=== PATIENT | female | born 1950 | race Caucasian/White ===

== ENCOUNTER 2016-04-29 19:54 | Observation (INO) | payer MEDICARE, MEDICAID ==
[2016-04-29] MEDS ORDERED: ONDANSETRON HCL/PF 2 MG/ML VIAL IV ONE (20:18)
[2016-04-29] MEDS ORDERED: ONDANSETRON HCL/PF 2 MG/ML VIAL ONE (20:18)
[2016-04-29] MEDS ORDERED: NITROGLYCERIN 0.4 MG/TAB BTL SL ONE (20:20)
[2016-04-29] MEDS ORDERED: ASPIRIN 81 MG TAB.CHEW ONE (20:35)
[2016-04-29] MEDS ORDERED: ASPIRIN 81 MG TAB.CHEW PO ONE (20:36)
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
[2016-04-29 20:48] LABS: Prothrombin Time (Patient) 11.7 Seconds (9.4-11.4)
[2016-04-29 20:49] LABS: INR 1.13 INR (0.90-1.10); Partial Thrombolplastin Time 33.8 Seconds (24-32)
[2016-04-29 20:54] LABS: ALT 24 U/L (19-67); AST 26 U/L (0-48); Albumin * 3.6 gm/dl (3.4-5.0); Alkaline Phosphatase * 124 U/L (50-170); Anion Gap 14.1 mmol/L (6.8-13.8); BUN/Creatinine Ratio 13.6 (9.0-21.6); Bilirubin, Total 0.3 mg/dL (0.0-1.1); Blood Urea Nitrogen 14 mg/dL (3-23); Ca. Corrected For Albumin 8.9 mg/dL (8.4-10.2); Calcium * 8.9 mg/dL (7.9-10.9); Carbon Dioxide 29.4 mmol/L (24-32.6); Chloride 98 mmol/L (97-106); Glucose * 86 mg/dL (70-110); Potassium 3.5 mmol/L (3.4-4.6); Sodium 138 mmol/L (132-142); Troponin I Less than 0.017 ng/ml (0.00-0.10)
[2016-04-29 20:55] LABS: Hematocrit 33.5 % (37.0-47.0); Hemoglobin 10.6 gm/dL (12.5-16.0); Mean Cell Volume 94.6 fl (78-100); Mean Corpuscular Hemoglobin 29.9 pg (27-31); Mean Corpuscular Hgb Conc 31.6 g/dl (32-36); Mean Platelet Volume 9.7 fl (6.0-9.5); Neutrophil # 7.7 K/mm3 (1.3-6.0); Neutrophil % 65.2 % (42-75.0); Platelet Count 320 K/mm3 (150-450); Red Blood Count 3.54 M/mm3 (4.2-5.4); Red Cell Distribution Width 15.3 % (11.5-14.0); White Blood Count 11.8 K/mm3 (4.0-10.5)
--- OUTSIDE RECORDS SUMMARY | 2016-04-29 21:48 | XMS REPORT | Continuity of Care Document ---
:1950 Author Organization [facility] ([facility] Address [address] [place] [address] Phone [phone] Care Team Providers Name Role Phone Oliver Rg Primary Care Provider [phone] Source Comments This disclosure is being made pursuant to the Care Everywhere program, applicable federal and state laws, and may not contain all informaitonavailable regarding this patient.[facility] ([facility] Active Allergies and Adverse Reactions Allergen Noted Date Severity Reactions Comments Antihistamine-1 09/13/2013 OTHER "Makes me really really hyper" Penicillins 09/13/2013 Urticaria (Hives) Current Medications Prescription Sig. Disp. Refills Start Date End Date Status ALPRAZolam 1 mg tablet Take 0.5 mg by Active mouth 2 times daily as needed. atorvastatin 20 mg Take 20 mg by mouth Active tablet daily. cyclobenzaprine 10 mg Take 2 tablets by Active tablet mouth every night at bedtime. isosorbide mononitrate Take 20 mg by mouth Active 20 mg tablet 2 times daily. metFORMIN 500 mg XR Take 1 tablet by Active tablet mouth daily with the evening meal. mirtazapine 15 mg tablet Take 15 mg by mouth Active at bedtime. nitroglycerin 0.[address] 1 tablet Active tablet under the tongue at the first sign of attack. May repeat every 5 minutes (up to 3 tablets). ranitidine 150 mg tablet Take 150 mg by Active mouth 2 times daily. HYDROcodone-acetaminophe Take 1 Tab by mouth 30 Tab 0 09/24/2013 Active n 5-325 mg per tablet every 6 hours as needed. Indications: PAIN metoPROLol tartrate 50 Take 1 Tab by mouth 60 Tab 0 09/24/2013 Active mg tablet every 12 hours. Indications: tachycardia QUEtiapine 400 mg tablet Take 0.5 Tabs by 30 Tab 0 09/24/2013 Active mouth 2 times daily. Indications: DEPRESSION TREATMENT ADJUNCT aspirin 81 mg EC tablet Take 1 Tab by mouth 30 Tab 0 09/24/2013 Active daily. Indications: MYOCARDIAL INFARCTION PREVENTION lidocaine 5 % ointment apply topically as 35 g 11 09/24/2013 Active needed. Indications: pain Active Problems Patient Care Coordination Note GOALS OF CARE AND TREATMENT PREFERENCES Diagnosis: Lower GI bleeding, hypotension Prognosis: Fair Goal(s) of Care: determine what is wrong Is the patient an inpatient? Yes. How did the team arrive at the current code status? Discussion with capable patient Most important goal of care: Stopping bleeding Additional remarks: None Patient able to make own decisions?: Yes Problem Noted Date Colitis 09/20/2013 Paralytic ileus 09/18/2013 Hypokalemia 09/16/2013 SVT (supraventricular tachycardia) 09/16/2013 Abdominal pain 09/14/2013 GI bleed 09/13/2013 Anemia due to acute blood loss 09/13/2013 DM type 2 (diabetes mellitus, type 2) 09/13/2013 History of lung cancer 09/13/2013 CAD (coronary artery disease) 09/13/2013 Essential hypertension 09/13/2013 Hypoalbuminemia 09/13/2013 Resolved Problems Problem Noted Date Resolved Date Sepsis(995.91) 09/18/2013 09/19/2013 Severe sepsis(995.92) 09/18/2013 09/19/2013 JACKIE (acute kidney injury) 09/14/2013 09/16/2013 Shock 09/13/2013 09/16/2013 Septic shock(785.52) 09/13/2013 09/16/2013 Hemorrhagic shock 09/13/2013 09/16/2013 Immunizations Name Dates Previously Given Next Due Influenza, unspecified 11/13/2012 Meningococcal, unspecified 04/13/2013 Pneumococcal, unspecified 06/22/2013 Social History Tobacco Use Types Packs/Day Years Used Date Former Smoker Alcohol Use Drinks/Week oz/Week Comments No Last Filed Vital Signs Vital Sign Reading Time Taken Blood Pressure 129/69 09/24/2013 8:20 AM CDT Pulse 112 09/24/2013 8:20 AM CDT Temperature 36.9 C (98.4 F) 09/24/2013 8:20 AM CDT Respiratory Rate 18 09/24/2013 8:20 AM CDT Height 1.562 m (5' 1.5") 09/20/2013 10:57 PM CDT Weight 65.8 kg (145 lb 1 oz) 09/20/2013 10:57 PM CDT Body Mass Index 26.97 09/20/2013 10:57 PM CDT Oxygen Saturation 93% 09/24/2013 8:20 AM CDT Plan of Care Health Maintenance Due Date Last Done Comments HCV Screening 1950 Hepatitis B Vaccine (1 of 3 - Primary Series) 1950 Tdap Vaccine 1960 DIABETIC: Cholesterol 11/19/1967 Diabetic: Hdl 11/19/1967 DIABETIC: Hemoglobin A1C 11/19/1967 Diabetic: Ldl 11/19/1967 DIABETIC: Microalbumin 11/19/1967 DIABETIC: Triglycerides 11/19/1967 Td Vaccine 11/19/1967 Mammogram 06/11/1997 06/11/1996 Colonoscopy 1999 Zoster Vaccine 2009 DIABETIC: Foot Exam 09/13/2013 DIABETIC: Retinal Eye Exam 09/13/2013 Osteoporosis Screening (DXA Bone Density) 2014 Pneumococcal Vaccine (1 of 2 - PCV13) 2014 Influenza Vaccine: Seasonal (#1) 09/14/2015 11/13/2012 Results from Last 3 Months Not on file
[2016-04-29] MEDS ORDERED: ALPRAZolam 0.5 MG TABLET PO PRN (23:19)
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
[2016-04-30] MEDS ORDERED: MIRTAZAPINE 15 MG TABLET PO SCH (00:15)
[2016-04-30] MEDS: ISOSORBIDE MONONITRATE 10 MG TABLET PO SCH ×2 (00:16→10:06)
[2016-04-30] MEDS: QUEtiapine FUMARATE 100 MG TABLET PO SCH ×2 (00:16→10:07)
[2016-04-30] MEDS: MORPHINE SULFATE 15 MG TABLET.SA PO SCH ×2 (00:17→10:06)
[2016-04-30 00:53] LABS: Urine Bilirubin Negative (NEGATIVE); Urine Blood Negative /ul (NEGATIVE); Urine Ketone Negative (NEGATIVE); Urine Nitrite Negative (NEGATIVE); Urine Protein Negative (NEGATIVE); Urine Specific Gravity 1.015 SP.GR. (1.005-1.010); Urine Urobilinogen Normal (NORMAL); Urine pH 6.5 pH (5.0-7.0)
[2016-04-30 06:31] LABS: Urine Appearance Clear; Urine Color Yellow
[2016-04-30 06:32] LABS: Urine Bacteria None Seen; Urine RBC None Seen /hpf (0-5); Urine WBC None Seen /hpf (0-5)
[2016-04-30] MEDS ORDERED: GLIMEPIRIDE 2 MG TABLET PO SCH (07:00)
[2016-04-30] MEDS ORDERED: PANTOPRAZOLE SODIUM 40 MG TABLET.EC PO SCH (07:00)
[2016-04-30 08:20] LABS: Hematocrit 31.5 % (37.0-47.0); Mean Cell Volume 93.2 fl (78-100); Mean Corpuscular Hemoglobin 29.6 pg (27-31); Mean Corpuscular Hgb Conc 31.7 g/dl (32-36); Mean Platelet Volume 9.4 fl (6.0-9.5); Neutrophil # 3.5 K/mm3 (1.3-6.0); Neutrophil % 54.9 % (42-75.0); Platelet Count 301 K/mm3 (150-450); Red Blood Count 3.38 M/mm3 (4.2-5.4); Red Cell Distribution Width 15.5 % (11.5-14.0); White Blood Count 6.4 K/mm3 (4.0-10.5)
[2016-04-30 08:43] LABS: TSH * 4.862 uIU/mL (0.358-3.74); Troponin I Less than 0.017 ng/ml (0.00-0.10)
[2016-04-30] MEDS ORDERED: PROCHLORPERAZINE MALEATE 10 MG TABLET PO SCH (09:00)
[2016-04-30] MEDS ORDERED: VITAMIN B COMP W-C 1 TAB TABLET PO SCH (09:00)
[2016-04-30] MEDS ORDERED: FAMOTIDINE 20 MG TABLET PO SCH (09:00)
[2016-04-30] MEDS ORDERED: ROSUVASTATIN CALCIUM 10 MG TABLET PO SCH (09:00)
[2016-04-30] MEDS ORDERED: RIVAROXABAN PO SCH (09:00)
[2016-04-30] MEDS ORDERED: VENLAFAXINE HCL 100 MG PO SCH (09:00)
[2016-04-30] MEDS ORDERED: CALCIUM CARBONATE/VITAMIN D3 1 TAB TABLET PO SCH (09:00)
[2016-04-30 10:31] VITALS: BP 113/63
--- NOTE | 2016-04-30 11:39 | DS ---
(1) Chest pain Problem: Acute Description of Stay: ADMISSION DATE: 04.29.2016 DISCHARGE DATE: 04.30.2016 ADMISSION HPI: 65 years old female adm to the hospital from ER with reports of substernal chest pain radiating to left arm. Pt stated she was at the movies when she began having chest pain, she was assisted to the bathroom by her daughter and drove to [facility]. Associated s/s nausea, vomiting, palpitation, diaphoresis and pt described a tight squeezing feeling in the chest. Pain was resolved in ER with use of Nitro tab x1 and aspirin 324mg x1. she denies headache, syncope and blurred vision. In ER EKG- Sinus tachy, no St changes. CXR: post treatment changes within left hemithorax, left upper lobe lobectomy. Initial troponin negative will repeat in 6hrs. WBC 11.3 slightly elevated she was recently treated for pneumonia with IV antbx (Cefepime) x10 days at the [facility], last dose was 04/23/16. she Currently uses Macrobid for recurrent UTI. PMH significant for lung cancer with mets to liver and spine, diabetes, [place] 20yrs ago, PE on xarelto, COPD, CKD III, recurrent UTI, anxiety, depression, CAD stents x3 and GERD. Will adm OBV and repeat serial troponin. Plan of care discussed with pt and they verbalized understanding and agree. HOSPITAL COURSE: Patient admitted for chest pain. Cardiac enzymes trended and unremarkable. Chest pain resolved prior to discharge. Patient instructed to follow-up with PCP within 1 week and to discuss possible outpatient cardiac stress test. Procedures Performed: none Discharge Disposition: Home self care Disposition: Home self-care Condition: Stable Discharge Activity: Activity as tolerated Discharge Diet: Resume usual diet Referrals: Oliver Rg DO [Primary Care Provider] - Additional Patient Instructions (free text): Follow-up with PCP, Dr. Rg, within 1 week of discharge. 05/09 at 2:00 Prescriptions (Any new or edited meds): Nitroglycerin 0.4 mg SL Q5M PRN #25 tab.subl PRN Reason: Chest Pain Ondansetron [Zofran Odt] 4 mg PO Q6H PRN #20 tab PRN Reason: Nausea And Vomiting Complete Home Medications List: Complete Home Medication List: Atorvastatin Calcium 20 mg PO DAILY 05/30/12 Mirtazapine [Remeron] 15 mg PO HS 05/30/12 Quetiapine Fumarate [Seroquel] 400 mg PO BID 05/30/12 Ranitidine HCl 150 mg PO DAILY 05/30/12 Venlafaxine HCl 100 mg PO BID 05/30/12 B Complex with Vitamin C [B-Complex with C] 1 tab PO BID 10/12/14 Calcium Carbonate/Vitamin D3 [Calcium 600 + Vit D 400 Softgl] 1 each PO BID Glimepiride [Amaryl] 1 mg PO DAILY 10/12/14 Pantoprazole Sodium 40 mg PO DAILY 10/12/14 Isosorbide Mononitrate 20 mg PO BID 12/20/14 Morphine Sulfate [Ms Contin] 15 mg PO BID 12/20/14 Prochlorperazine Maleate [Compazine] 10 mg PO BID 12/20/14 ALPRAZolam [Xanax] 0.5 mg PO QID PRN 04/29/16 Hydrocodone Bitartrate [Zohydro ER] 7.5 mg PO Q6H PRN 04/29/16 Nitrofurantoin Macrocrystal [Nitrofurantoin] 100 mg PO HS 04/29/16 Nivolumab [Opdivo] 0 mg IV TU 04/29/16 Rivaroxaban [Xarelto] 20 mg PO DAILY 04/29/16 Nitroglycerin 0.4 mg SL Q5M PRN #25 tab.subl 04/30/16 Ondansetron [Zofran Odt] 4 mg PO Q6H PRN #20 tab 04/30/16
[2016-04-30] MEDS ORDERED: NON-FORMULARY 1 DOSE DOSE PO SCH (14:00)
== END 2016-04-30 12:45 | disposition home or self-care (01) ==
LOC: ER 19:54 → MS 21:36
PROVIDERS: ADMIT Nurse Practitioner; ATTEND Internal Medicine
DX: R07.9 Chest pain, unspecified (principal); C34.12 Malignant neoplasm of upper lobe, left bronchus or lung; E03.9 Hypothyroidism, unspecified; E11.9 Type 2 diabetes mellitus without complications; Z79.84 Long term (current) use of oral hypoglycemic drugs; I27.82 Chronic pulmonary embolism; Z79.01 Long term (current) use of anticoagulants; K21.9 Gastro-esophageal reflux disease without esophagitis; F41.8 Other specified anxiety disorders; I25.10 Atherosclerotic heart disease of native coronary artery without angina pectoris; Z87.891 Personal history of nicotine dependence
CPT/HCPCS: 36415; 71010; 80053; 81001; 84443; 84484; 85025; 85610; 85730; 93005; 96374; 99284; G0378

== ENCOUNTER 2016-09-30 13:11 | Emergency (ER) | payer MEDICARE, MEDICAID ==
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
[2016-09-30] MEDS ORDERED: IBUPROFEN 600 MG TABLET PO ONE (14:13)
[2016-09-30] MEDS ORDERED: IBUPROFEN 600 MG TABLET ONE (14:13)
[2016-09-30 14:23] VITALS: BP 109/58
== END 2016-09-30 14:24 | disposition home or self-care (01) ==
LOC: ER 13:11
DX: S46.911A Strain of unspecified muscle, fascia and tendon at shoulder and upper arm level, right arm, initial encounter (principal); G89.29 Other chronic pain; E11.9 Type 2 diabetes mellitus without complications; K21.9 Gastro-esophageal reflux disease without esophagitis; Z85.118 Personal history of other malignant neoplasm of bronchus and lung

== ENCOUNTER 2016-10-26 08:35 | Emergency (ER) | payer MEDICARE, MEDICAID ==
[2016-10-26 08:53] VITALS: BP 121/56
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
[2016-10-26] MEDS ORDERED: MORPHINE SULFATE 2 MG/ML DISP.SYRIN IV ONE (09:33)
[2016-10-26] MEDS ORDERED: ONDANSETRON HCL/PF 2 MG/ML VIAL IV ONE (09:33)
[2016-10-26] MEDS ORDERED: MORPHINE SULFATE 2 MG/ML DISP.SYRIN ONE (09:53)
[2016-10-26] MEDS ORDERED: ONDANSETRON HCL/PF 2 MG/ML VIAL ONE (09:53)
[2016-10-26 09:56] LABS: Hematocrit 26.4 % (37.0-47.0); Hemoglobin 8.3 gm/dL (12.5-16.0); Mean Cell Volume 89.2 fl (78-100); Mean Corpuscular Hgb Conc 31.4 g/dl (32-36); Mean Platelet Volume 9.2 fl (6.0-9.5); Platelet Count 521 K/mm3 (150-450); Red Blood Count 2.96 M/mm3 (4.2-5.4); Red Cell Distribution Width 19.9 % (11.5-14.0); White Blood Count 13.8 K/mm3 (4.0-10.5)
[2016-10-26 09:59] LABS: Total Cells Counted 100
[2016-10-26 10:12] LABS: Albumin * 2.9 gm/dl (3.4-5.0); Anion Gap 12.7 mmol/L (6.8-13.8); BUN/Creatinine Ratio 17.1 (9.0-21.6); Bilirubin, Total 0.2 mg/dL (0.0-1.1); Ca. Corrected For Albumin 9.3 mg/dL (8.4-10.2); Calcium * 8.7 mg/dL (7.9-10.9); Carbon Dioxide 28.2 mmol/L (24-32.6); Potassium 3.9 mmol/L (3.4-4.6)
[2016-10-26 10:27] LABS: Atypical (Reactive) Lymph 1 % (0-2); Eosinophil 2 % (0-3); Immature Granulocyte 2 (0-1); Lymphocyte 10 % (20-51); Monocyte 11 % (0-9); Neutrophil 74 % (42-75); Neutrophil # 10.2 K/mm3 (1.3-6.0)
[2016-10-26 10:28] LABS: Hypochromia 2+; Macrocytosis 2+; Platelet Estimate Increased (NORMAL); Target Cells 3+
[2016-10-26 10:31] LABS: Urine Bilirubin Negative (NEGATIVE); Urine Blood Negative /ul (NEGATIVE); Urine Ketone Negative (NEGATIVE); Urine Protein Negative (NEGATIVE); Urine Urobilinogen Normal (NORMAL); Urine pH 6.5 pH (5.0-7.0)
[2016-10-26 10:43] LABS: Urine Appearance Clear; Urine Bacteria 2+; Urine Color Yellow; Urine Nitrite Positive (NEGATIVE); Urine RBC None Seen /hpf (0-5)
[2016-10-26] MEDS ORDERED: LEVOFLOXACIN/D5W 500 MG/100 ML BAG IV SCH (11:00)
[2016-10-26] MEDS ORDERED: HYDROmorphone HCL 1 MG/ML DISP.SYRIN IV ONE (12:08)
[2016-10-26] MEDS ORDERED: HYDROmorphone HCL 1 MG/ML DISP.SYRIN ONE (12:10)
== END 2016-10-26 13:27 | disposition home or self-care (01) ==
LOC: ER 08:35
DX: N12 Tubulo-interstitial nephritis, not specified as acute or chronic (principal); Z87.891 Personal history of nicotine dependence; Z85.118 Personal history of other malignant neoplasm of bronchus and lung; Z92.21 Personal history of antineoplastic chemotherapy; Z87.440 Personal history of urinary (tract) infections; I50.9 Heart failure, unspecified; Z95.5 Presence of coronary angioplasty implant and graft; E11.9 Type 2 diabetes mellitus without complications; K21.9 Gastro-esophageal reflux disease without esophagitis; Z79.01 Long term (current) use of anticoagulants
CPT/HCPCS: 36415; 71275; 74020; 80053; 81001; 85025; 85379; 87077; 87086; 87186; 96365; 96375; 99284; J2405

== ENCOUNTER 2016-11-20 21:01 | Emergency (ER) | payer MEDICARE, MEDICAID ==
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
[2016-11-20 22:30] LABS: Hematocrit 28.4 % (37.0-47.0); Hemoglobin 9.3 gm/dL (12.5-16.0); Mean Cell Volume 85.5 fl (78-100); Mean Corpuscular Hgb Conc 32.7 g/dl (32-36); Mean Platelet Volume 9.9 fl (6.0-9.5); Neutrophil # 10.1 K/mm3 (1.3-6.0); Neutrophil % 77.7 % (42-75.0); Platelet Count 290 K/mm3 (150-450); Red Blood Count 3.32 M/mm3 (4.2-5.4); Red Cell Distribution Width 20.4 % (11.5-14.0)
[2016-11-20 22:34] LABS: Urine Bilirubin Negative (NEGATIVE); Urine Blood Negative /ul (NEGATIVE); Urine Ketone Negative (NEGATIVE); Urine Protein Negative (NEGATIVE); Urine Urobilinogen Normal (NORMAL); Urine pH 6.5 pH (5.0-7.0)
[2016-11-20 22:44] LABS: Urine Appearance Clear; Urine Bacteria 2+; Urine Color Yellow; Urine Nitrite Positive (NEGATIVE); Urine RBC None Seen /hpf (0-5); Urine WBC 0-5 /hpf (0-5)
[2016-11-20 23:01] LABS: Albumin * 2.5 gm/dl (3.4-5.0); Anion Gap 12.2 mmol/L (6.8-13.8); BUN/Creatinine Ratio 17.7 (9.0-21.6); Bilirubin, Total 0.4 mg/dL (0.0-1.1); Ca. Corrected For Albumin 9.1 mg/dL (8.4-10.2); Calcium * 8.2 mg/dL (7.9-10.9); Carbon Dioxide 27.1 mmol/L (24-32.6); Potassium 3.3 mmol/L (3.4-4.6); Total Protein 7.9 gm/dL (6.2-8.2)
[2016-11-20] MEDS ORDERED: POTASSIUM CHLORIDE 20 MEQ TABLET.SA PO ONE (23:48)
[2016-11-20] MEDS ORDERED: POTASSIUM CHLORIDE 20 MEQ TABLET.SA ONE (23:50)
[2016-11-21 00:12] VITALS: BP 120/76
== END 2016-11-20 23:58 | disposition home or self-care (01) ==
LOC: ER 21:01
PROC: 0T9B7ZZ Drainage of Bladder, Via Natural or Artificial Opening (ICD-10-PCS; principal; 2016-11-20)
DX: E16.0 Drug-induced hypoglycemia without coma (principal); T38.3X1A Poisoning by insulin and oral hypoglycemic [antidiabetic] drugs, accidental (unintentional), initial encounter; E11.9 Type 2 diabetes mellitus without complications; Z85.118 Personal history of other malignant neoplasm of bronchus and lung; Z92.21 Personal history of antineoplastic chemotherapy; Z87.440 Personal history of urinary (tract) infections; Z95.5 Presence of coronary angioplasty implant and graft; I50.9 Heart failure, unspecified; Z87.891 Personal history of nicotine dependence; R53.1 Weakness

== ENCOUNTER 2016-12-03 13:40 | Emergency (ER) | payer MEDICARE, MEDICAID ==
[2016-12-03] MEDS ORDERED: DILTIAZEM HCL 5 MG/ML VIAL IV ONE ×2 (13:58→14:01)
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
[2016-12-03 14:34] LABS: Urine Appearance Clear; Urine Bilirubin Negative (NEGATIVE); Urine Blood Negative /ul (NEGATIVE); Urine Color Yellow; Urine Ketone 15 mg/dL (NEGATIVE); Urine Nitrite Negative (NEGATIVE); Urine Protein Negative (NEGATIVE); Urine Urobilinogen Normal (NORMAL)
[2016-12-03 14:35] LABS: Urine Bacteria None Seen; Urine RBC None Seen /hpf (0-5); Urine WBC None Seen /hpf (0-5)
[2016-12-03 14:41] LABS: Hematocrit 24.4 % (37.0-47.0); Mean Cell Volume 88.1 fl (78-100); Mean Corpuscular Hemoglobin 28.9 pg (27-31); Mean Corpuscular Hgb Conc 32.8 g/dl (32-36); Mean Platelet Volume 10.2 fl (6.0-9.5); Neutrophil # 10.5 K/mm3 (1.3-6.0); Neutrophil % 78.3 % (42-75.0); Platelet Count 321 K/mm3 (150-450); Red Blood Count 2.77 M/mm3 (4.2-5.4); Red Cell Distribution Width 21.7 % (11.5-14.0); White Blood Count 13.4 K/mm3 (4.0-10.5)
[2016-12-03 14:58] LABS: Albumin * 2.1 gm/dl (3.4-5.0); Anion Gap 12.5 mmol/L (6.8-13.8); BUN/Creatinine Ratio 6.9 (9.0-21.6); Bilirubin, Total 0.3 mg/dL (0.0-1.1); Ca. Corrected For Albumin 8.8 mg/dL (8.4-10.2); Calcium * 7.6 mg/dL (7.9-10.9); Carbon Dioxide 29.4 mmol/L (24-32.6); Potassium 2.9 mmol/L (3.4-4.6); Total Protein 7.2 gm/dL (6.2-8.2)
[2016-12-03 14:59] LABS: Troponin I 0.114 ng/ml (0.00-0.10)
[2016-12-03 15:54] VITALS: BP 122/76
== END 2016-12-03 16:15 | disposition short-term general hospital (02) ==
LOC: ER 13:40
DX: I21.4 Non-ST elevation (NSTEMI) myocardial infarction (principal); R41.0 Disorientation, unspecified; Z85.118 Personal history of other malignant neoplasm of bronchus and lung

== ENCOUNTER 2016-12-07 16:14 | Inpatient (IN) | payer MEDICARE, MEDICAID ==
[2016-12-07] MEDS ORDERED: NORMAL SALINE 1,000 ML IV ONE (17:09)
[2016-12-07 17:28] LABS: Hematocrit 28.5 % (37.0-47.0); Hemoglobin 9.3 gm/dL (12.5-16.0); Mean Cell Volume 89.3 fl (78-100); Mean Corpuscular Hemoglobin 29.2 pg (27-31); Mean Corpuscular Hgb Conc 32.6 g/dl (32-36); Mean Platelet Volume 9.9 fl (6.0-9.5); Neutrophil # 13.3 K/mm3 (1.3-6.0); Neutrophil % 75.7 % (42-75.0); Platelet Count 362 K/mm3 (150-450); Red Blood Count 3.19 M/mm3 (4.2-5.4); White Blood Count 17.6 K/mm3 (4.0-10.5)
[2016-12-07 17:51] LABS: Albumin * 2.3 gm/dl (3.4-5.0); Anion Gap 10.4 mmol/L (6.8-13.8); BUN/Creatinine Ratio 11.9 (9.0-21.6); Bilirubin, Total 0.5 mg/dL (0.0-1.1); Ca. Corrected For Albumin 9.3 mg/dL (8.4-10.2); Calcium * 8.3 mg/dL (7.9-10.9); Carbon Dioxide 31.5 mmol/L (24-32.6); Potassium 3.9 mmol/L (3.4-4.6); Total Protein 7.8 gm/dL (6.2-8.2); Troponin I 0.092 ng/ml (0.00-0.10)
[2016-12-07] MEDS ORDERED: LEVOFLOXACIN/D5W 500 MG/100 ML BAG IV SCH (18:30)
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
[2016-12-07 19:20] LABS: Urine Bilirubin Negative (NEGATIVE); Urine Blood Negative /ul (NEGATIVE); Urine Ketone Negative (NEGATIVE); Urine Nitrite Negative (NEGATIVE); Urine Protein Negative (NEGATIVE); Urine Urobilinogen Normal (NORMAL); Urine pH 7.5 pH (5.0-7.0)
[2016-12-07] MEDS ORDERED: ACETAMINOPHEN 500 MG TABLET PO ONE (19:30)
[2016-12-07 19:33] LABS: Urine Appearance Clear; Urine Bacteria TRACE; Urine Color Orange; Urine RBC None Seen /hpf (0-5); Urine WBC TRACE /hpf (0-5)
[2016-12-07] MEDS ORDERED: ONDANSETRON HCL/PF 2 MG/ML VIAL IV ONE (19:44)
[2016-12-07] MEDS ORDERED: ONDANSETRON HCL/PF 2 MG/ML VIAL ONE (19:46)
[2016-12-07 20:41] LABS: Prothrombin Time (Patient) 14.2 Seconds (9.0-11.0)
[2016-12-07 20:45] LABS: INR 1.42 INR (0.90-1.10)
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
[2016-12-07] MEDS ORDERED: ACETAMINOPHEN 500 MG TABLET PO PRN (21:22)
[2016-12-07] MEDS ORDERED: ACETAMINOPHEN PO PRN (21:41)
[2016-12-07] MEDS ORDERED: [UNRECOGNIZED DRUG - OTHER] PO PRN (21:41)
[2016-12-07] MEDS ORDERED: HYDROCODONE PO PRN (21:41)
[2016-12-07] MEDS ORDERED: NITROGLYCERIN 0.4 MG/TAB BTL SL PRN (21:41)
[2016-12-07] MEDS ORDERED: MAGNESIUM CITRATE 300 ML BTL PO ONE (21:48)
[2016-12-07] MEDS ORDERED: RIVAROXABAN 20 MG PO SCH (22:04)
[2016-12-07] MEDS ORDERED: MIRTAZAPINE 15 MG TABLET ONE (22:22)
[2016-12-07] MEDS ORDERED: SUCRALFATE 1 G TABLET ONE (22:22)
[2016-12-07] MEDS: QUEtiapine FUMARATE 100 MG TABLET PO SCH (22:32)
[2016-12-07] MEDS: MIRTAZAPINE 15 MG TABLET PO SCH (22:34)
[2016-12-07] MEDS: HYDROcodone/ACETAMINOPHEN 1 EACH TABLET PO PRN (22:34)
[2016-12-07] MEDS: SUCRALFATE 1 G TABLET PO SCH (22:34)
[2016-12-07] MEDS: CALCIUM CARBONATE/VITAMIN D3 1 TAB TABLET PO SCH (22:35)
[2016-12-07] MEDS: MORPHINE SULFATE 15 MG TABLET.SA PO SCH (22:35)
[2016-12-08 06:39] LABS: Hemoglobin 8.9 gm/dL (12.5-16.0); Mean Cell Volume 89.1 fl (78-100); Mean Corpuscular Hemoglobin 29.4 pg (27-31); Mean Platelet Volume 10.8 fl (6.0-9.5); Platelet Count 261 K/mm3 (150-450); Red Blood Count 3.03 M/mm3 (4.2-5.4); White Blood Count 18.5 K/mm3 (4.0-10.5)
[2016-12-08 06:42] LABS: Total Cells Counted 100
[2016-12-08 06:59] LABS: Band 3 % (0-2.0); Lymphocyte 11 % (20-51); Monocyte 7 % (0-9); Neutrophil 79 % (42-75); Neutrophil # 14.6 K/mm3 (1.3-6.0); Platelet Estimate Increased (NORMAL)
[2016-12-08 07:00] LABS: Hypersegmented Polys 1+; Ovalocytes 1+; Target Cells 3+; Toxic Granulation 1+
[2016-12-08] MEDS: HYDROcodone/ACETAMINOPHEN 1 EACH TABLET PO PRN (08:07)
[2016-12-08] MEDS ORDERED: CEFEPIME HCL 2 GM in DEXTROSE 5 % IN WATER 100 ML IV SCH ×2 (09:00)
[2016-12-08] MEDS ORDERED: RIVAROXABAN 20 MG PO SCH (09:00)
[2016-12-08] MEDS: FLUTICASONE/SALMETEROL 14 PUFF DISK.W.DEV IH SCH ×2 (09:26→20:19)
[2016-12-08] MEDS: CALCIUM CARBONATE/VITAMIN D3 1 TAB TABLET PO SCH ×2 (09:29→20:16)
[2016-12-08] MEDS: SUCRALFATE 1 G TABLET PO SCH ×4 (09:29→20:17)
[2016-12-08] MEDS: LORATADINE 10 MG TABLET PO SCH (09:31)
[2016-12-08] MEDS: ROSUVASTATIN CALCIUM 10 MG TABLET PO SCH (09:31)
[2016-12-08] MEDS: SACCHAROMYCES BOULARDII 250 MG CAPSULE PO SCH ×2 (09:32→20:17)
[2016-12-08] MEDS: VENLAFAXINE HCL 75 MG TABLET PO SCH ×2 (09:32→20:17)
[2016-12-08] MEDS: MAGNESIUM OXIDE 400 MG TABLET PO SCH (09:33)
[2016-12-08] MEDS: POTASSIUM CHLORIDE 20 MEQ TABLET.SA PO SCH (09:33)
[2016-12-08] MEDS: MULTIVITAMINS 1 CAP CAPSULE PO SCH (09:34)
[2016-12-08] MEDS: MORPHINE SULFATE 15 MG TABLET.SA PO SCH ×2 (09:39→21:03)
[2016-12-08] MEDS: CEFEPIME HCL 2 GM in DEXTROSE 5 % IN WATER 100 ML IV SCH ×4 (09:55→20:23)
[2016-12-08] MEDS: PANTOPRAZOLE SODIUM 40 MG TABLET.EC PO SCH (10:03)
[2016-12-08] MEDS: QUEtiapine FUMARATE 100 MG TABLET PO SCH ×2 (10:04→20:15)
[2016-12-08] MEDS: TIOTROPIUM BROMIDE 5 CAP INHALER IH SCH (10:04)
[2016-12-08] MEDS: SENNOSIDES/DOCUSATE SODIUM 1 TAB TABLET PO SCH ×2 (10:04→20:17)
[2016-12-08] MEDS: VANCOMYCIN HCL 1.25 GM in DEXTROSE 5 % IN WATER 250 ML IV SCH ×2 (12:55)
[2016-12-08] MEDS ORDERED: ALPRAZolam 0.5 MG TABLET PO PRN (13:08)
[2016-12-08] MEDS: oxyCODONE HCL/ACETAMINOPHEN 1 TAB TABLET PO PRN ×2 (13:25→18:48)
[2016-12-08] MEDS: HEPARIN SOD.,PORCINE 100 UNITS/ML IV PRN (15:01)
--- NOTE | 2016-12-08 16:22 | PN ---
Subjective - Date and Time Seen Date: 12/08/16 Time: 08:30 Subjective Narrative: Abigail reports feeling good this morning. Oxygen at baseline 3lpm. She reports no confusion this morning. Nursing reports some episodes of confusion and tremors overnight. Abigail reports coughing. No fever, no chills. Objective - Vitals Vitals: Last Vital Signs Temp 36.4 C L 12/08/16 14:44 Pulse 105 H 12/08/16 14:44 Resp 18 12/08/16 14:44 BP 101/62 12/08/16 14:44 Pulse Ox 96 12/08/16 14:44 - Abnormal Lab Findings Abnormal Lab Findings: Abnormal Lab Results 12/08/16 Range/Units 05:00 WBC 18.5 H (4.0-10.5) K/mm3 RBC 3.03 L (4.2-5.4) M/mm3 Hgb 8.9 L (12.5-16.0) gm/dL Hct 27.0 L (37.0-47.0) % RDW 20.0 H (11.5-14.0) % MPV 10.8 H (6.0-9.5) fl Neutrophils % (Manual) 79 H (42-75) % Band Neuts % (Manual) 3 H (0-2.0) % Lymphocytes % (Manual) 11 L (20-51) % Neutrophils # (Manual) 14.6 H (1.3-6.0) K/mm3 Monocytes # (Manual) 1.3 H (0.0-1.0) k/mm3 Platelet Estimate Increased H (NORMAL) - Exam Constitutional: Present: Alert, Oriented x3, Cooperative ENT Exam: Present: hearing grossly normal Cardiovascular/Chest: Present: no murmur, irregularly irregular Abdomen: Present: Normal bowel sounds, soft, nontender Skin Exam: Present: normal color, warm/dry, no cyanosis Assessment/Plan - Problems/Diagnosis (1) Hospital-acquired pneumonia Problem: Acute Narrative: Recent IV antibiotics for UTI through [facility]) as well as 4 day admission at [facility]. Chest xray with concern with pneumonia, leukocytosis, coughing, confusion. This may all be from HAP. Will broaden antibiotic coverage with cefepime and vancomycin. Discontinue levaquin. (2) Altered mental status Problem: Acute Narrative: Will get Brain MRI with and without contrast to evaluate, patient with lung cancer, concerned for potential brain mets. (3) Tremor Problem: Acute (4) UTI (urinary tract infection) Problem: Resolved Narrative: Completed course of invanz. Will repeat urine culture to show resolution. (5) Lung cancer Problem: Chronic
[2016-12-08] MEDS ORDERED: LEVOFLOXACIN/D5W 500 MG/100 ML BAG IV SCH (20:00)
[2016-12-08] MEDS: RIVAROXABAN 20 MG TABLET PO SCH (20:18)
[2016-12-08] MEDS: MIRTAZAPINE 15 MG TABLET PO SCH (20:18)
[2016-12-09] MEDS: oxyCODONE HCL/ACETAMINOPHEN 1 TAB TABLET PO PRN ×4 (06:36→23:52)
[2016-12-09] MEDS: SENNOSIDES/DOCUSATE SODIUM 1 TAB TABLET PO SCH ×2 (09:31→22:43)
[2016-12-09] MEDS: SUCRALFATE 1 G TABLET PO SCH ×4 (09:31→22:41)
[2016-12-09] MEDS: FLUTICASONE/SALMETEROL 14 PUFF DISK.W.DEV IH SCH ×2 (09:31→22:40)
[2016-12-09] MEDS: CALCIUM CARBONATE/VITAMIN D3 1 TAB TABLET PO SCH ×2 (09:31→22:53)
[2016-12-09] MEDS: LORATADINE 10 MG TABLET PO SCH (09:32)
[2016-12-09] MEDS: VENLAFAXINE HCL 75 MG TABLET PO SCH ×2 (09:32→22:42)
[2016-12-09] MEDS: ROSUVASTATIN CALCIUM 10 MG TABLET PO SCH (09:32)
[2016-12-09] MEDS: MULTIVITAMINS 1 CAP CAPSULE PO SCH (09:33)
[2016-12-09] MEDS: QUEtiapine FUMARATE 100 MG TABLET PO SCH ×2 (09:33→22:44)
[2016-12-09] MEDS: PANTOPRAZOLE SODIUM 40 MG TABLET.EC PO SCH (09:33)
[2016-12-09] MEDS: SACCHAROMYCES BOULARDII 250 MG CAPSULE PO SCH ×2 (09:33→22:42)
[2016-12-09] MEDS: POTASSIUM CHLORIDE 20 MEQ TABLET.SA PO SCH (09:33)
[2016-12-09] MEDS: MAGNESIUM OXIDE 400 MG TABLET PO SCH (09:33)
[2016-12-09] MEDS: TIOTROPIUM BROMIDE 5 CAP INHALER IH SCH (09:34)
[2016-12-09] MEDS: MORPHINE SULFATE 15 MG TABLET.SA PO SCH ×2 (09:35→22:46)
[2016-12-09] MEDS: CEFEPIME HCL 2 GM in DEXTROSE 5 % IN WATER 100 ML IV SCH ×4 (09:35→22:45)
[2016-12-09] MEDS: HEPARIN SOD.,PORCINE 100 UNITS/ML IV PRN ×2 (10:20→15:18)
[2016-12-09] MEDS: VANCOMYCIN HCL 1.25 GM in DEXTROSE 5 % IN WATER 250 ML IV SCH ×2 (13:45)
[2016-12-09] MEDS ORDERED: MAGNESIUM CITRATE 300 ML BTL PO ONE (15:15)
[2016-12-09 17:16] LABS: Iron 17 mcg/dL (35-120); Transferrin Sat. (% Sat.) 16 % (15-55)
[2016-12-09] MEDS: ONDANSETRON HCL/PF 2 MG/ML VIAL IV PRN (19:12)
[2016-12-09] MEDS ORDERED: BISACODYL 10 MG SUPP.RECT RC SCH ×2 (19:45→20:00)
[2016-12-09] MEDS: METOPROLOL TARTRATE 1 MG/ML AMPUL IV SCH ×3 (20:11→20:29)
[2016-12-09] MEDS ORDERED: DILTIAZEM HCL 5 MG/ML VIAL IV ONE ×2 (20:44)
[2016-12-09 20:51] LABS: Albumin * 2.3 gm/dl (3.4-5.0); Anion Gap 13.4 mmol/L (6.8-13.8); BUN/Creatinine Ratio 12.8 (9.0-21.6); Bilirubin, Total 0.5 mg/dL (0.0-1.1); Ca. Corrected For Albumin 10.3 mg/dL (8.4-10.2); Calcium * 9.3 mg/dL (7.9-10.9); Carbon Dioxide 30.4 mmol/L (24-32.6); Magnesium 1.6 mg/dL (1.2-2.8); Potassium 4.8 mmol/L (3.4-4.6); Total Protein 8.3 gm/dL (6.2-8.2)
--- NOTE | 2016-12-09 20:54 | PN ---
Progess Note - Interim Narrative: 12/09/16 20:44 paroxysmal Afib RVR [employer] was called to pt room EKG showed Afib RVR with rate of 190, pt report feelings of nausea and vomited x1. Per family pt was in A fib RVR less than a week ago and was transferred to [facility]. she had converted enroute to the hospital. During this episode she was given Lopressor 5mg Q5 mins x3 given and rate sustained at 140-160BPM see flow sheet for vital signs. Cardizem 10mg x1 given. NS Bolus in progress and Bp is sustained. Pt stated she is having abdominal pain radiating to the back but its not new, per daughter it has been ongoing for a few months. CBC, BMP, Trop, mag, pending case discussed and is managed with colon therapist attending Constipation pt stated she had mag citrate and no bowel movement approximately 1 week. Abdomen distended auscultated bowel sounds in all quadrants Will Give suppository and enemas when stable 12/09/16 22:36 Afib RVR- resolved Pt converted to NSR after Cardizem 10mg x1 dose. Plan to continue with cardizem 120mg BID per Dr Means recommendation. Pt is already on Therapeutic anticoag with Xarelto for PE. Family requesting CT abdomen due to abdominal discomfort and pt haven't had bowel movement in days. Will give suppository and enema and re-eval in the morning.
[2016-12-09] MEDS: NORMAL SALINE 1,000 ML IV PRN ×2 (21:15→21:17)
[2016-12-09] MEDS: MIRTAZAPINE 15 MG TABLET PO SCH (22:43)
[2016-12-09] MEDS: RIVAROXABAN 20 MG TABLET PO SCH (22:44)
[2016-12-10] MEDS ORDERED: NORMAL SALINE 1,000 ML IV PRN (00:09)
[2016-12-10] MEDS: ONDANSETRON HCL/PF 2 MG/ML VIAL IV PRN (00:10)
[2016-12-10 05:56] LABS: Hematocrit 26.4 % (37.0-47.0); Hemoglobin 8.6 gm/dL (12.5-16.0); Mean Cell Volume 89.8 fl (78-100); Mean Corpuscular Hemoglobin 29.3 pg (27-31); Mean Corpuscular Hgb Conc 32.6 g/dl (32-36); Mean Platelet Volume 10.5 fl (6.0-9.5); Neutrophil # 11.6 K/mm3 (1.3-6.0); Neutrophil % 75.1 % (42-75.0); Platelet Count 377 K/mm3 (150-450); Red Blood Count 2.94 M/mm3 (4.2-5.4); Red Cell Distribution Width 19.9 % (11.5-14.0); White Blood Count 15.4 K/mm3 (4.0-10.5)
[2016-12-10 06:22] LABS: Albumin * 1.7 gm/dl (3.4-5.0); Anion Gap 10.6 mmol/L (6.8-13.8); Bilirubin, Total 0.4 mg/dL (0.0-1.1); Ca. Corrected For Albumin 9.9 mg/dL (8.4-10.2); Calcium * 8.4 mg/dL (7.9-10.9); Carbon Dioxide 29.7 mmol/L (24-32.6); Potassium 4.3 mmol/L (3.4-4.6); Total Protein 6.7 gm/dL (6.2-8.2)
[2016-12-10] MEDS: oxyCODONE HCL/ACETAMINOPHEN 1 TAB TABLET PO PRN ×4 (07:39→20:17)
[2016-12-10] MEDS: MULTIVITAMINS 1 CAP CAPSULE PO SCH (08:55)
[2016-12-10] MEDS: QUEtiapine FUMARATE 100 MG TABLET PO SCH ×2 (08:55→21:28)
[2016-12-10] MEDS: MAGNESIUM OXIDE 400 MG TABLET PO SCH (08:56)
[2016-12-10] MEDS: CALCIUM CARBONATE/VITAMIN D3 1 TAB TABLET PO SCH ×2 (08:56→21:24)
[2016-12-10] MEDS: ROSUVASTATIN CALCIUM 10 MG TABLET PO SCH (08:56)
[2016-12-10] MEDS: SACCHAROMYCES BOULARDII 250 MG CAPSULE PO SCH ×2 (08:56→21:26)
[2016-12-10] MEDS: LORATADINE 10 MG TABLET PO SCH (08:57)
[2016-12-10] MEDS: POTASSIUM CHLORIDE 20 MEQ TABLET.SA PO SCH (08:57)
[2016-12-10] MEDS: SUCRALFATE 1 G TABLET PO SCH ×4 (08:57→21:25)
[2016-12-10] MEDS: SENNOSIDES/DOCUSATE SODIUM 1 TAB TABLET PO SCH ×2 (08:57→21:27)
[2016-12-10] MEDS: PANTOPRAZOLE SODIUM 40 MG TABLET.EC PO SCH (08:57)
[2016-12-10] MEDS: FLUTICASONE/SALMETEROL 14 PUFF DISK.W.DEV IH SCH ×2 (08:58→21:23)
[2016-12-10] MEDS: TIOTROPIUM BROMIDE 5 CAP INHALER IH SCH (08:59)
[2016-12-10] MEDS: MORPHINE SULFATE 15 MG TABLET.SA PO SCH ×2 (09:02→21:28)
[2016-12-10] MEDS: CEFEPIME HCL 2 GM in DEXTROSE 5 % IN WATER 100 ML IV SCH ×4 (09:03→21:28)
[2016-12-10] MEDS: VENLAFAXINE HCL 75 MG TABLET PO SCH ×2 (09:03→21:26)
[2016-12-10] MEDS: HEPARIN SOD.,PORCINE 100 UNITS/ML IV PRN (10:13)
[2016-12-10] MEDS: VANCOMYCIN HCL 1.25 GM in DEXTROSE 5 % IN WATER 250 ML IV SCH ×2 (11:38)
[2016-12-10] MEDS: BISACODYL 10 MG SUPP.RECT RC SCH ×2 (13:02→21:25)
[2016-12-10] MEDS ORDERED: SOD CHLORIDE/NAHCO3/KCL/PEG'S 4,000 ML BTL PO ONE (17:57)
[2016-12-10] MEDS: POLYETHYLENE GLYCOL 3350 119 GM BTL PO SCH (21:26)
[2016-12-10] MEDS: MIRTAZAPINE 15 MG TABLET PO SCH (21:27)
[2016-12-10] MEDS: RIVAROXABAN 20 MG TABLET PO SCH (21:28)
[2016-12-11] MEDS: oxyCODONE HCL/ACETAMINOPHEN 1 TAB TABLET PO PRN ×3 (04:15→17:57)
[2016-12-11] MEDS: ONDANSETRON HCL/PF 2 MG/ML VIAL IV PRN ×2 (05:27→13:25)
--- NOTE | 2016-12-11 06:08 | PN ---
Subjective - Date and Time Seen Date: 12/11/16 Time: 06:05 Subjective Narrative: Patient seen today in bed with reports of nausea, abdominal pain to the right quadrant. She refuses to drink golyte and had only small liquid bowel movement. pt stated she already feels full and drink make its feels worst. No emesis Objective - Review of Systems Generalized/Overall Review: Reports: No Symptoms Reported EENTM: Reports: No Symptoms Reported Respiratory: Reports: No Symptoms Reported Cardiac: Reports: No Symptoms Reported Abdominal: Reports: Nausea, Abdominal Pain, Constipation Genitourinary Symptoms: Reports: No Symptoms Reported Musculoskeletal Complaints: Reports: No Symptoms Reported Neurological: Reports: Tremors Skin: Reports: No Symptoms Reported Endocrine: Reports: No Symptoms Reported - Vitals Vitals: Last Vital Signs Temp 36.5 C 12/11/16 03:20 Pulse 107 H 12/11/16 03:20 Resp 17 12/11/16 03:20 BP 123/64 12/11/16 03:20 Pulse Ox 96 12/11/16 03:20 - Abnormal Lab Findings Abnormal Lab Findings: Abnormal Lab Results 12/10/16 12/10/16 Range/Units 05:40 05:40 WBC 15.4 H (4.0-10.5) K/mm3 RBC 2.94 L (4.2-5.4) M/mm3 Hgb 8.6 L (12.5-16.0) gm/dL Hct 26.4 L (37.0-47.0) % RDW 19.9 H (11.5-14.0) % MPV 10.5 H (6.0-9.5) fl Immature Gran % (Auto) 0.80 H (0.001-0.429) % Immature Gran # (Auto) 0.13 H (0.000-0.0310) K/mm3 Neutrophils % 75.1 H (42-75.0) % Lymphocytes % 12.4 L (20-51) % Monocytes % 9.6 H (0.0-9) % Neutrophils # 11.6 H (1.3-6.0) K/mm3 Monocytes # 1.5 H (0.0-1.0) k/mm3 Alkaline Phosphatase 217 H (50-170) U/L Albumin 1.7 L (3.4-5.0) gm/dl - Exam Constitutional: Present: Alert, Oriented x3, Cooperative, No distress ENT Exam: Present: hearing grossly normal Neck: Present: full range of motion Breasts: Present: Exam deferred Respiratory: Present: chest non-tender, normal breath sounds, no respiratory distress, decreased breath sounds Cardiovascular/Chest: Present: normal peripheral pulses, no chest tenderness, no edema, irregularly irregular Abdomen: Present: rigidity, distended, hypoactive Extremity: Present: normal range of motion, non-tender, normal inspection Skin Exam: Present: normal color, warm/dry, no cyanosis Neurologic: Present: oriented x 3 Appearance: Present: appropriate appearance Eye contact: Present: cooperative Thoughts: Present: normal thought pattern Assessment/Plan Plan Narrative: Hospital acquired Pneumonia pt was recently hospitalized for 4 days prior to this adm CXR:increased density within the right mid-lower lung. On adm WBC 17.6----> 15.4 remaining afebrile 12/08/16 Stopped Levaquin and switch to cefepime and vancomycin for HAP and pt was recently treated with IV antbx for UTI Constipation Continue with stool softeners and laxative pt have been given enemas, suppository and oral laxative, but still remains constipated On Manual exam, stool is very hard and too far up in rectum to manually removed pt refusing to drink golyte, continue to encourage 12/10/16 X-ray abdomen : fecal retention Paroxysmal a-fib 12/09/16 pt went into afib and converted back to NSR after metropolol 5mg x3 dose and cardizem 10mg x1 will consider cardizem 120mg BID Already on oral anticoag Xarelto for PE Lung cancer with mets to liver and spine- stable Continue with supplemented oxygen , pt uses 3L oxygen at home S/P left upper lobe lobectomy pt took last dose of oral chemo 2 weeks ago Oncologist have her on 1 month break Follow up with oncologist Chronic Pulmonary Embolism Continue with Xarelto at prescribed home dose UTI Last IV antbx treatment was completed last Monday Diabetes consistent / cardiac diet Accu-check AC+HS Generalized weakness PT/OT eval and treatment Code status: Full VTE ppx: therapeutic Xarelto GI ppx: Protonix Time 35 minutes case discussed with pt family and Dr Means - Problems/Diagnosis (1) Constipation Problem: Chronic Qualifiers: Constipation type: slow transit constipation Qualified Code(s): K59.01 - Slow transit constipation (2) Generalized weakness Problem: Acute (3) Pneumonia Problem: Acute (4) Mental status change Problem: Acute (5) Diabetes Problem: Chronic (6) Lung cancer Problem: Chronic
[2016-12-11] MEDS ORDERED: DILTIAZEM HCL 5 MG/ML VIAL IV ONE (06:35)
[2016-12-11] MEDS ORDERED: DILTIAZEM HCL 60 MG CAP.SR.12H PO SCH (07:00)
[2016-12-11] MEDS ORDERED: DILTIAZEM HCL 125 MG in DEXTROSE 5 % IN WATER 100 ML IV PRN ×2 (07:21)
[2016-12-11] MEDS ORDERED: VANCOMYCIN HCL LEVEL XX ONE (08:30)
[2016-12-11] MEDS: CEFEPIME HCL 2 GM in DEXTROSE 5 % IN WATER 100 ML IV SCH ×4 (09:19→21:33)
[2016-12-11] MEDS: POLYETHYLENE GLYCOL 3350 119 GM BTL PO SCH ×2 (09:22→21:31)
[2016-12-11] MEDS: SENNOSIDES/DOCUSATE SODIUM 1 TAB TABLET PO SCH ×2 (09:53→21:32)
[2016-12-11] MEDS: CALCIUM CARBONATE/VITAMIN D3 1 TAB TABLET PO SCH ×2 (09:53→21:29)
[2016-12-11] MEDS: PANTOPRAZOLE SODIUM 40 MG TABLET.EC PO SCH (09:53)
[2016-12-11] MEDS: SUCRALFATE 1 G TABLET PO SCH ×4 (09:53→21:30)
[2016-12-11] MEDS: SACCHAROMYCES BOULARDII 250 MG CAPSULE PO SCH ×2 (09:54→21:31)
[2016-12-11] MEDS: POTASSIUM CHLORIDE 20 MEQ TABLET.SA PO SCH (09:54)
[2016-12-11] MEDS: VENLAFAXINE HCL 75 MG TABLET PO SCH ×2 (09:54→21:30)
[2016-12-11] MEDS: ROSUVASTATIN CALCIUM 10 MG TABLET PO SCH (09:54)
[2016-12-11] MEDS: LORATADINE 10 MG TABLET PO SCH (09:54)
[2016-12-11] MEDS: MAGNESIUM OXIDE 400 MG TABLET PO SCH (09:54)
[2016-12-11] MEDS: MORPHINE SULFATE 15 MG TABLET.SA PO SCH ×2 (09:55→21:37)
[2016-12-11] MEDS: QUEtiapine FUMARATE 100 MG TABLET PO SCH ×2 (09:55→21:32)
[2016-12-11] MEDS: MULTIVITAMINS 1 CAP CAPSULE PO SCH (09:55)
[2016-12-11] MEDS ORDERED: DILTIAZEM HCL 120 MG CAP.SR.24H PO ONE (10:00)
[2016-12-11] MEDS: BISACODYL 10 MG SUPP.RECT RC SCH ×2 (10:05→21:30)
[2016-12-11] MEDS: FLUTICASONE/SALMETEROL 14 PUFF DISK.W.DEV IH SCH ×2 (10:15→21:28)
[2016-12-11] MEDS: TIOTROPIUM BROMIDE 5 CAP INHALER IH SCH (10:16)
[2016-12-11] MEDS: VANCOMYCIN HCL 1.75 GM in DEXTROSE 5 % IN WATER 500 ML IV SCH ×2 (11:13)
[2016-12-11] MEDS: HEPARIN SOD.,PORCINE 100 UNITS/ML IV PRN (15:24)
[2016-12-11] MEDS: MIRTAZAPINE 15 MG TABLET PO SCH (21:31)
[2016-12-11] MEDS: RIVAROXABAN 20 MG TABLET PO SCH (21:33)
[2016-12-12 05:59] LABS: Hematocrit 26.4 % (37.0-47.0); Hemoglobin 8.6 gm/dL (12.5-16.0); Mean Cell Volume 88.9 fl (78-100); Mean Corpuscular Hgb Conc 32.6 g/dl (32-36); Mean Platelet Volume 10.5 fl (6.0-9.5); Platelet Count 432 K/mm3 (150-450); Red Blood Count 2.97 M/mm3 (4.2-5.4); Red Cell Distribution Width 19.5 % (11.5-14.0); White Blood Count 13.7 K/mm3 (4.0-10.5)
[2016-12-12 06:03] LABS: Total Cells Counted 100
[2016-12-12 06:19] LABS: Eosinophil 5 % (0-3); Hypochromia Trace; Immature Granulocyte 3 (0-1); Lymphocyte 20 % (20-51); Monocyte 5 % (0-9); Neutrophil 67 % (42-75); Neutrophil # 9.2 K/mm3 (1.3-6.0); Platelet Estimate Normal (NORMAL)
[2016-12-12 06:20] LABS: Macrocytosis Trace; Target Cells 3+
[2016-12-12] MEDS: oxyCODONE HCL/ACETAMINOPHEN 1 TAB TABLET PO PRN ×3 (07:00→20:17)
[2016-12-12] MEDS: SODIUM, POTASSIUM,MAG SULFATES 1 KIT KIT PO ONE ×2 (08:29→13:46)
[2016-12-12] MEDS: CALCIUM CARBONATE/VITAMIN D3 1 TAB TABLET PO SCH ×2 (08:30→20:18)
[2016-12-12] MEDS: FLUTICASONE/SALMETEROL 14 PUFF DISK.W.DEV IH SCH ×2 (08:30→20:18)
[2016-12-12] MEDS: SUCRALFATE 1 G TABLET PO SCH ×4 (08:31→20:18)
[2016-12-12] MEDS: LORATADINE 10 MG TABLET PO SCH (08:32)
[2016-12-12] MEDS: ROSUVASTATIN CALCIUM 10 MG TABLET PO SCH (08:32)
[2016-12-12] MEDS: BISACODYL 10 MG SUPP.RECT RC SCH ×2 (08:32→20:19)
[2016-12-12] MEDS: POTASSIUM CHLORIDE 20 MEQ TABLET.SA PO SCH (08:33)
[2016-12-12] MEDS: MAGNESIUM OXIDE 400 MG TABLET PO SCH (08:33)
[2016-12-12] MEDS: VENLAFAXINE HCL 75 MG TABLET PO SCH ×2 (08:33→20:21)
[2016-12-12] MEDS: SACCHAROMYCES BOULARDII 250 MG CAPSULE PO SCH ×2 (08:33→20:20)
[2016-12-12] MEDS: PANTOPRAZOLE SODIUM 40 MG TABLET.EC PO SCH (08:34)
[2016-12-12] MEDS: SENNOSIDES/DOCUSATE SODIUM 1 TAB TABLET PO SCH ×2 (08:34→20:21)
[2016-12-12] MEDS: MULTIVITAMINS 1 CAP CAPSULE PO SCH (08:34)
[2016-12-12] MEDS: POLYETHYLENE GLYCOL 3350 119 GM BTL PO SCH ×2 (08:34→20:20)
[2016-12-12] MEDS: QUEtiapine FUMARATE 100 MG TABLET PO SCH ×2 (08:34→20:22)
[2016-12-12] MEDS: CEFEPIME HCL 2 GM in DEXTROSE 5 % IN WATER 100 ML IV SCH ×4 (08:35→21:16)
[2016-12-12] MEDS: TIOTROPIUM BROMIDE 5 CAP INHALER IH SCH (08:35)
[2016-12-12] MEDS ORDERED: DILTIAZEM HCL 120 MG CAP.SR.24H PO SCH (09:00)
[2016-12-12] MEDS: MORPHINE SULFATE 15 MG TABLET.SA PO SCH ×2 (09:40→21:16)
[2016-12-12] MEDS: VANCOMYCIN HCL 1.75 GM in DEXTROSE 5 % IN WATER 500 ML IV SCH ×2 (11:27)
[2016-12-12] MEDS: LACTULOSE 10 G/15 ML BTL PO SCH ×3 (13:20→20:19)
[2016-12-12] MEDS ORDERED: DIATRIZOATE MEGLUMINE, SODIUM 30 ML BTL PO ONE ×2 (13:52→13:56)
[2016-12-12] MEDS: MIRTAZAPINE 15 MG TABLET PO SCH (20:20)
[2016-12-12] MEDS: RIVAROXABAN 20 MG TABLET PO SCH (20:22)
--- NOTE | 2016-12-12 23:25 | PN ---
Subjective - Date and Time Seen Date: 12/12/16 Time: 12:38 Subjective Narrative: Patient reports ruq abdominal pain and weakness. No fever, chills, N/V. Objective - Vitals Vitals: Last Vital Signs Temp 36.4 C L 12/12/16 18:30 Pulse 104 H 12/12/16 18:30 Resp 21 H 12/12/16 18:30 BP 117/61 12/12/16 18:30 Pulse Ox 96 12/12/16 18:30 - Abnormal Lab Findings Abnormal Lab Findings: Abnormal Lab Results 12/12/16 Range/Units 05:20 WBC 13.7 H (4.0-10.5) K/mm3 RBC 2.97 L (4.2-5.4) M/mm3 Hgb 8.6 L (12.5-16.0) gm/dL Hct 26.4 L (37.0-47.0) % RDW 19.5 H (11.5-14.0) % MPV 10.5 H (6.0-9.5) fl Eosinophils % (Manual) 5 H (0-3) % Immature Granulocytes 3 H (0-1) Neutrophils # (Manual) 9.2 H (1.3-6.0) K/mm3 - Exam Constitutional: Present: Alert, Oriented x3, Cooperative ENT Exam: Present: hearing grossly normal Respiratory: Present: decreased breath sounds - left Cardiovascular/Chest: Present: no murmur, tachycardia Abdomen: Present: Normal bowel sounds, soft, tender - RUQ Extremity: Present: normal inspection Skin Exam: Present: normal color, warm/dry, no cyanosis Assessment/Plan - Problems/Diagnosis (1) Hospital-acquired pneumonia Problem: Acute Narrative: Continue IV antibiotics. Continue to encourage working with PT for strength. (2) Altered mental status Problem: Acute (3) Tremor Problem: Acute (4) UTI (urinary tract infection) Problem: Resolved (5) Lung cancer Problem: Chronic Qualifiers: Laterality: left
[2016-12-13] MEDS ORDERED: DILTIAZEM HCL 5 MG/ML VIAL IV ONE ×2 (01:58→02:58)
--- NOTE | 2016-12-13 02:01 | PN ---
Progess Note - Interim Narrative: 12/13/16 01:59 Afib RVR with HR 160-180 cardizem 5mg x1 now, if blood pressure lowered then consider giving digoxin and IVF. After Cardizem 5mg HR 120-130 and BP 120/97. cardiac marker negative and BMP within normal limits. Will give another Cardizem 5mg x1 now and continue to monitor. see flow sheet for VS, BP 92/57 digoxin 0.5mg x1 then digoxin 0.125mg Q6hs x 4 doses. case discussed and managed with Dr Adams.
[2016-12-13 02:36] LABS: Anion Gap 9.8 mmol/L (6.8-13.8); BUN/Creatinine Ratio 10.8 (9.0-21.6); Blood Urea Nitrogen 8 mg/dL (3-23); Calcium * 8.4 mg/dL (7.9-10.9); Carbon Dioxide 29.8 mmol/L (24-32.6); Chloride 100 mmol/L (97-106); Estimated Creat Clear 55.7; Glucose * 102 mg/dL (70-110); Potassium 3.6 mmol/L (3.4-4.6); Sodium 136 mmol/L (132-142); Troponin I Less than 0.017 ng/ml (0.00-0.10)
[2016-12-13] MEDS ORDERED: DIGOXIN 0.25 MG/ML AMPUL IV ONE ×2 (03:41)
[2016-12-13] MEDS ORDERED: DIGOXIN 0.25 MG/ML AMPUL ONE (03:53)
[2016-12-13] MEDS ORDERED: DIGOXIN 0.25 MG/ML AMPUL IV SCH (04:00)
[2016-12-13 05:54] LABS: Hematocrit 29.1 % (37.0-47.0); Hemoglobin 9.6 gm/dL (12.5-16.0); Mean Cell Volume 88.4 fl (78-100); Mean Corpuscular Hemoglobin 29.2 pg (27-31); Mean Platelet Volume 10.4 fl (6.0-9.5); Platelet Count 453 K/mm3 (150-450); Red Blood Count 3.29 M/mm3 (4.2-5.4); Red Cell Distribution Width 19.3 % (11.5-14.0); White Blood Count 16.4 K/mm3 (4.0-10.5)
[2016-12-13 06:02] LABS: Total Cells Counted 100
[2016-12-13 06:41] LABS: Atypical (Reactive) Lymph 2 % (0-2); Eosinophil 4 % (0-3); Immature Granulocyte 1 (0-1); Lymphocyte 17 % (20-51); Macrocytosis 2+; Monocyte 2 % (0-9); Neutrophil 74 % (42-75); Neutrophil # 12.1 K/mm3 (1.3-6.0); Platelet Estimate Increased (NORMAL); Target Cells 2+
[2016-12-13] MEDS ORDERED: traMADol HCL 50 MG TABLET PO ONE (07:37)
[2016-12-13] MEDS: BISACODYL 10 MG SUPP.RECT RC SCH ×2 (09:16→20:58)
[2016-12-13] MEDS: LACTULOSE 10 G/15 ML BTL PO SCH ×4 (09:16→20:58)
[2016-12-13] MEDS: CEFEPIME HCL 2 GM in DEXTROSE 5 % IN WATER 100 ML IV SCH ×4 (09:46→20:59)
[2016-12-13] MEDS: DILTIAZEM HCL 180 MG CAP.SR.24H PO SCH (10:12)
[2016-12-13] MEDS: CALCIUM CARBONATE/VITAMIN D3 1 TAB TABLET PO SCH ×2 (10:12→20:58)
[2016-12-13] MEDS: SUCRALFATE 1 G TABLET PO SCH ×4 (10:12→20:58)
[2016-12-13] MEDS: QUEtiapine FUMARATE 100 MG TABLET PO SCH ×2 (10:13→20:59)
[2016-12-13] MEDS: SACCHAROMYCES BOULARDII 250 MG CAPSULE PO SCH ×2 (10:13→20:59)
[2016-12-13] MEDS: MULTIVITAMINS 1 CAP CAPSULE PO SCH (10:13)
[2016-12-13] MEDS: POLYETHYLENE GLYCOL 3350 119 GM BTL PO SCH ×2 (10:14→20:59)
[2016-12-13] MEDS: ROSUVASTATIN CALCIUM 10 MG TABLET PO SCH (10:14)
[2016-12-13] MEDS: MAGNESIUM OXIDE 400 MG TABLET PO SCH (10:14)
[2016-12-13] MEDS: PANTOPRAZOLE SODIUM 40 MG TABLET.EC PO SCH (10:14)
[2016-12-13] MEDS: SENNOSIDES/DOCUSATE SODIUM 1 TAB TABLET PO SCH ×2 (10:15→20:59)
[2016-12-13] MEDS: VENLAFAXINE HCL 75 MG TABLET PO SCH ×2 (10:15→21:01)
[2016-12-13] MEDS: LORATADINE 10 MG TABLET PO SCH (10:15)
[2016-12-13] MEDS: POTASSIUM CHLORIDE 20 MEQ TABLET.SA PO SCH (10:17)
[2016-12-13] MEDS: DIGOXIN 0.25 MG/ML AMPUL IV SCH ×3 (10:22→21:00)
[2016-12-13] MEDS: FLUTICASONE/SALMETEROL 14 PUFF DISK.W.DEV IH SCH ×2 (10:26→20:58)
[2016-12-13] MEDS: MORPHINE SULFATE 15 MG TABLET.SA PO SCH ×2 (11:37→21:44)
[2016-12-13] MEDS: VANCOMYCIN HCL 1.75 GM in DEXTROSE 5 % IN WATER 500 ML IV SCH ×2 (11:40)
[2016-12-13] MEDS: TIOTROPIUM BROMIDE 5 CAP INHALER IH SCH (11:44)
[2016-12-13] MEDS: oxyCODONE HCL/ACETAMINOPHEN 1 TAB TABLET PO PRN ×3 (13:01→21:44)
--- NOTE | 2016-12-13 14:39 | PN ---
Subjective - Date and Time Seen Date: 12/10/16 Time: 14:35 Subjective Narrative: Patient seen and examined at bedside. Patient's only complaint is of RLQ pain secondary to constipation. Objective - Review of Systems Generalized/Overall Review: Reports: Weakness, Fatigue EENTM: Reports: No Symptoms Reported Respiratory: Reports: No Symptoms Reported Cardiac: Reports: No Symptoms Reported Abdominal: Reports: Abdominal Pain, Constipation Genitourinary Symptoms: Reports: No Symptoms Reported Musculoskeletal Complaints: Reports: No Symptoms Reported Neurological: Reports: No Symptoms Reported Skin: Reports: No Symptoms Reported Endocrine: Reports: No Symptoms Reported Misc: All systems neg except as marked - Vitals Vitals: Last Vital Signs Temp 35.8 C L 12/13/16 10:39 Pulse 106 H 12/13/16 10:39 Resp 23 H 12/13/16 10:39 BP 131/69 12/13/16 10:39 Pulse Ox 100 12/13/16 10:39 - Abnormal Lab Findings Abnormal Lab Findings: Abnormal Lab Results 12/13/16 Range/Units 05:50 WBC 16.4 H (4.0-10.5) K/mm3 RBC 3.29 L (4.2-5.4) M/mm3 Hgb 9.6 L (12.5-16.0) gm/dL Hct 29.1 L (37.0-47.0) % RDW 19.3 H (11.5-14.0) % Plt Count 453 H (150-450) K/mm3 MPV 10.4 H (6.0-9.5) fl Lymphocytes % (Manual) 17 L (20-51) % Eosinophils % (Manual) 4 H (0-3) % Neutrophils # (Manual) 12.1 H (1.3-6.0) K/mm3 Platelet Estimate Increased H (NORMAL) - Exam Constitutional: Present: Alert, Oriented x3, Cooperative ENT Exam: Present: hearing grossly normal, moist mucous membranes Respiratory: Present: lungs clear, normal breath sounds, no respiratory distress , no accessory muscle use Cardiovascular/Chest: Present: regular rate, rhythm Abdomen: Present: tender - RLQ TTP, hypoactive Neurologic: Present: alert, oriented x 3 Appearance: Present: appropriate appearance, appropriate insight, neat, no memory impairment Eye contact: Present: cooperative, good eye contact, normal speech Thoughts: Present: normal thought pattern, no apparent hallucination Assessment/Plan Plan Narrative: Continue current cares and IV antibiotics. Aggressive bowel regimen ordered and if no results we will plan to have the patient start drinking GoLytely. - Problems/Diagnosis (1) Atrial fibrillation Problem: Acute (2) Hospital-acquired pneumonia Problem: Acute (3) Constipation Problem: Chronic Qualifiers: Constipation type: slow transit constipation Qualified Code(s): K59.01 - Slow transit constipation
[2016-12-13] MEDS: RIVAROXABAN 20 MG TABLET PO SCH (20:59)
[2016-12-13] MEDS: MIRTAZAPINE 15 MG TABLET PO SCH (21:00)
--- NOTE | 2016-12-13 23:34 | PN ---
Subjective - Date and Time Seen Date: 12/13/16 Time: 12:47 Subjective Narrative: Reports very tired today. Had episodes of afib with rvr over night. Patient was asymptomatic during episode but afterwards feels worn out. No fever, chills. Had very minimal bowel movement. Objective - Vitals Vitals: Last Vital Signs Temp 36.5 C 12/13/16 18:00 Pulse 97 12/13/16 18:00 Resp 20 12/13/16 18:00 BP 108/58 12/13/16 18:00 Pulse Ox 100 12/13/16 18:00 - Abnormal Lab Findings Abnormal Lab Findings: Abnormal Lab Results 12/13/16 Range/Units 05:50 WBC 16.4 H (4.0-10.5) K/mm3 RBC 3.29 L (4.2-5.4) M/mm3 Hgb 9.6 L (12.5-16.0) gm/dL Hct 29.1 L (37.0-47.0) % RDW 19.3 H (11.5-14.0) % Plt Count 453 H (150-450) K/mm3 MPV 10.4 H (6.0-9.5) fl Lymphocytes % (Manual) 17 L (20-51) % Eosinophils % (Manual) 4 H (0-3) % Neutrophils # (Manual) 12.1 H (1.3-6.0) K/mm3 Platelet Estimate Increased H (NORMAL) - Exam Constitutional: Present: Alert, Oriented x3, Cooperative ENT Exam: Present: hearing grossly normal Respiratory: Present: lungs clear, decreased breath sounds Cardiovascular/Chest: Present: regular rate, rhythm, no murmur Abdomen: Present: Normal bowel sounds, tender - RUQ worse, diffuse thoughout Skin Exam: Present: normal color, warm/dry, no cyanosis Assessment/Plan Plan Narrative: Abigail with continued episodes of Afib with RVR, was started on digoxin overnight and given additional diltiazem. Will increase oral diltiazem to 180mg for improved control. Mag citrate, miralax, colace, senna, dulcolax have all been unsuccessful for bowel movement. Patient was ordered colon prep to help but she does not like the quantity. Will try lactulose. - Problems/Diagnosis (1) Hospital-acquired pneumonia Problem: Acute (2) Altered mental status Problem: Acute (3) Tremor Problem: Acute (4) Lung cancer Problem: Chronic (5) Atrial fibrillation with rapid ventricular response Problem: Acute (6) Fecal retention Problem: Acute
[2016-12-14] MEDS: DIGOXIN 0.25 MG/ML AMPUL IV SCH ×2 (03:18→10:49)
[2016-12-14] MEDS: BISACODYL 10 MG SUPP.RECT RC SCH (09:34)
[2016-12-14] MEDS: LACTULOSE 10 G/15 ML BTL PO SCH ×4 (09:34→21:04)
[2016-12-14] MEDS: CALCIUM CARBONATE/VITAMIN D3 1 TAB TABLET PO SCH (09:42)
[2016-12-14] MEDS: DILTIAZEM HCL 180 MG CAP.SR.24H PO SCH (09:43)
[2016-12-14] MEDS: SACCHAROMYCES BOULARDII 250 MG CAPSULE PO SCH ×2 (09:43→21:04)
[2016-12-14] MEDS: LORATADINE 10 MG TABLET PO SCH (09:44)
[2016-12-14] MEDS: SUCRALFATE 1 G TABLET PO SCH ×4 (09:45→21:03)
[2016-12-14] MEDS: ROSUVASTATIN CALCIUM 10 MG TABLET PO SCH (09:45)
[2016-12-14] MEDS: VENLAFAXINE HCL 75 MG TABLET PO SCH ×2 (09:45→21:03)
[2016-12-14] MEDS: MORPHINE SULFATE 15 MG TABLET.SA PO SCH ×2 (09:46→21:10)
[2016-12-14] MEDS: FLUTICASONE/SALMETEROL 14 PUFF DISK.W.DEV IH SCH ×2 (09:59→21:03)
[2016-12-14] MEDS: TIOTROPIUM BROMIDE 5 CAP INHALER IH SCH (10:00)
[2016-12-14] MEDS: QUEtiapine FUMARATE 100 MG TABLET PO SCH ×2 (10:03→21:05)
[2016-12-14] MEDS: PANTOPRAZOLE SODIUM 40 MG TABLET.EC PO SCH (10:04)
[2016-12-14] MEDS: POTASSIUM CHLORIDE 20 MEQ TABLET.SA PO SCH (10:04)
[2016-12-14] MEDS: MAGNESIUM OXIDE 400 MG TABLET PO SCH (10:04)
[2016-12-14] MEDS: MULTIVITAMINS 1 CAP CAPSULE PO SCH (10:04)
[2016-12-14] MEDS: POLYETHYLENE GLYCOL 3350 119 GM BTL PO SCH (10:12)
[2016-12-14] MEDS: SENNOSIDES/DOCUSATE SODIUM 1 TAB TABLET PO SCH (10:12)
[2016-12-14] MEDS: CEFEPIME HCL 2 GM in DEXTROSE 5 % IN WATER 100 ML IV SCH ×4 (10:13→21:06)
[2016-12-14] MEDS ORDERED: VANCOMYCIN HCL LEVEL XX ONE (10:30)
[2016-12-14] MEDS: HEPARIN SOD.,PORCINE 100 UNITS/ML IV PRN ×2 (11:10→17:05)
[2016-12-14] MEDS: VANCOMYCIN HCL 1.75 GM in DEXTROSE 5 % IN WATER 500 ML IV SCH ×2 (11:49)
[2016-12-14] MEDS: oxyCODONE HCL/ACETAMINOPHEN 1 TAB TABLET PO SCH ×3 (13:56→21:10)
--- NOTE | 2016-12-14 17:04 | PN ---
Subjective - Date and Time Seen Date: 12/14/16 Time: 17:04 Subjective Narrative: Abigail reports still having RUQ abdominal pain, voice hoarse, feeling tired. Does feel a little better than yesterday. On her baseline oxygen. No fever or chills. Had good bowel movements yesterday. Repeat abdominal xray today shows improved stool retention but still some present. Reports she has not felt strong enough to walk in halls, but has walked to bathroom and reports doing exercises in bed. Objective - Vitals Vitals: Last Vital Signs Temp 36.5 C 12/14/16 15:36 Pulse 97 12/14/16 15:36 Resp 22 H 12/14/16 15:36 BP 103/47 12/14/16 15:36 Pulse Ox 99 12/14/16 15:36 - Exam Constitutional: Present: Alert, Oriented x3, Cooperative ENT Exam: Present: hearing grossly normal Respiratory: Present: lungs clear, normal breath sounds, decreased breath sounds Cardiovascular/Chest: Present: regular rate, rhythm, no murmur Skin Exam: Present: normal color, warm/dry, no cyanosis Assessment/Plan Plan Narrative: Abigail clinically is doing well from pneumonia. Stool retention is improved with lactulose. Still mild retention present, will continue lactulose at twice a day with a goal for 1 BM every 1-2 days. Atrial fibrillation resolved, currently in sinus rhythm. Doing better with increased diltiazem to 180. Hoping to control with just diltiazem will discontinue digoxin. Patient is very weak. Needs to keep working on strength. Will evaluate for skilled placement for therapies for strengthening. - Problems/Diagnosis (1) Hospital-acquired pneumonia Problem: Acute (2) Altered mental status Problem: Acute (3) Tremor Problem: Acute (4) Lung cancer Problem: Chronic (5) Fecal retention Problem: Acute (6) Atrial fibrillation with rapid ventricular response Problem: Acute
[2016-12-14] MEDS: MIRTAZAPINE 15 MG TABLET PO SCH (21:05)
[2016-12-14] MEDS: RIVAROXABAN 20 MG TABLET PO SCH (21:06)
[2016-12-15] MEDS: oxyCODONE HCL/ACETAMINOPHEN 1 TAB TABLET PO SCH ×6 (01:11→21:29)
[2016-12-15] MEDS: FLUTICASONE/SALMETEROL 14 PUFF DISK.W.DEV IH SCH ×2 (08:18→21:30)
[2016-12-15] MEDS: SUCRALFATE 1 G TABLET PO SCH ×4 (08:20→21:31)
[2016-12-15] MEDS: DILTIAZEM HCL 180 MG CAP.SR.24H PO SCH (08:21)
[2016-12-15] MEDS: ROSUVASTATIN CALCIUM 10 MG TABLET PO SCH (08:23)
[2016-12-15] MEDS: LORATADINE 10 MG TABLET PO SCH (08:23)
[2016-12-15] MEDS: LACTULOSE 10 G/15 ML BTL PO SCH ×2 (08:24→21:31)
[2016-12-15] MEDS: VENLAFAXINE HCL 75 MG TABLET PO SCH ×2 (08:24→21:31)
[2016-12-15] MEDS: POTASSIUM CHLORIDE 20 MEQ TABLET.SA PO SCH (08:27)
[2016-12-15] MEDS: SACCHAROMYCES BOULARDII 250 MG CAPSULE PO SCH ×2 (08:27→21:32)
[2016-12-15] MEDS: MAGNESIUM OXIDE 400 MG TABLET PO SCH (08:28)
[2016-12-15] MEDS: PANTOPRAZOLE SODIUM 40 MG TABLET.EC PO SCH (08:28)
[2016-12-15] MEDS: MULTIVITAMINS 1 CAP CAPSULE PO SCH (08:28)
[2016-12-15] MEDS: QUEtiapine FUMARATE 100 MG TABLET PO SCH ×2 (08:30→21:33)
[2016-12-15] MEDS: CEFEPIME HCL 2 GM in DEXTROSE 5 % IN WATER 100 ML IV SCH ×2 (08:58)
[2016-12-15] MEDS: MORPHINE SULFATE 15 MG TABLET.SA PO SCH ×2 (08:58→21:30)
[2016-12-15] MEDS ORDERED: DILTIAZEM HCL 180 MG CAP.SR.24H PO SCH (09:00)
[2016-12-15] MEDS: DILTIAZEM HCL 240 MG CAP.SR.24H PO SCH (10:19)
[2016-12-15] MEDS: TIOTROPIUM BROMIDE 5 CAP INHALER IH SCH (10:55)
[2016-12-15] MEDS ORDERED: DILTIAZEM HCL 60 MG CAP.SR.12H PO ONE (17:00)
[2016-12-15] MEDS: POLYETHYLENE GLYCOL 3350 119 GM BTL PO SCH (17:03)
[2016-12-15] MEDS: SENNOSIDES/DOCUSATE SODIUM 1 TAB TABLET PO SCH ×2 (17:04→21:32)
[2016-12-15] MEDS: MIRTAZAPINE 15 MG TABLET PO SCH (21:32)
[2016-12-15] MEDS: RIVAROXABAN 20 MG TABLET PO SCH (21:33)
[2016-12-16] MEDS: oxyCODONE HCL/ACETAMINOPHEN 1 TAB TABLET PO SCH ×4 (01:48→13:55)
--- NOTE | 2016-12-16 08:29 | PN ---
Subjective - Date and Time Seen Date: 12/15/16 Time: 16:47 Objective - Vitals Vitals: Last Vital Signs VSS, afebrile - Exam Constitutional: Present: Alert, Oriented x3, Cooperative ENT Exam: Present: hearing grossly normal Respiratory: Present: decreased breath sounds - left lung Cardiovascular/Chest: Present: no murmur, tachycardia Abdomen: Present: Normal bowel sounds, soft, tender - RUQ Skin Exam: Present: normal color, warm/dry, no cyanosis Assessment/Plan - Problems/Diagnosis (1) Hospital-acquired pneumonia Problem: Acute Narrative: Will be receiving last dose of IV antibiotics. Will reevaluate by PT to see if she is strong enough for home discharge tomorrow. Consider skilled therapy here vs PT at halfway vs PT with home health. Discussed all options. She declines going to halfway. She would like to go home with PT. (2) Altered mental status Problem: Acute (3) Tremor Problem: Acute (4) Lung cancer Problem: Chronic Qualifiers: Laterality: left (5) Atrial fibrillation with rapid ventricular response Problem: Acute (6) Fecal retention Problem: Acute
[2016-12-16 08:46] LABS: Hematocrit 29.6 % (37.0-47.0); Hemoglobin 9.5 gm/dL (12.5-16.0); Mean Cell Volume 89.7 fl (78-100); Mean Corpuscular Hemoglobin 28.8 pg (27-31); Mean Corpuscular Hgb Conc 32.1 g/dl (32-36); Mean Platelet Volume 9.8 fl (6.0-9.5); Platelet Count 483 K/mm3 (150-450); Red Cell Distribution Width 18.9 % (11.5-14.0); White Blood Count 17.5 K/mm3 (4.0-10.5)
[2016-12-16] MEDS: POLYETHYLENE GLYCOL 3350 119 GM BTL PO SCH (08:49)
[2016-12-16] MEDS: LACTULOSE 10 G/15 ML BTL PO SCH (08:50)
[2016-12-16] MEDS: FLUTICASONE/SALMETEROL 14 PUFF DISK.W.DEV IH SCH (08:51)
[2016-12-16] MEDS: TIOTROPIUM BROMIDE 5 CAP INHALER IH SCH (08:51)
[2016-12-16 09:01] LABS: Total Cells Counted 100
[2016-12-16 09:02] LABS: Albumin * 1.9 gm/dl (3.4-5.0); Anion Gap 8.7 mmol/L (6.8-13.8); BUN/Creatinine Ratio 14.5 (9.0-21.6); Bilirubin, Total 0.2 mg/dL (0.0-1.1); Ca. Corrected For Albumin 9.6 mg/dL (8.4-10.2); Calcium * 8.2 mg/dL (7.9-10.9); Carbon Dioxide 29.1 mmol/L (24-32.6); Potassium 3.8 mmol/L (3.4-4.6); Total Protein 7.5 gm/dL (6.2-8.2)
[2016-12-16 09:04] LABS: Atypical (Reactive) Lymph 6 % (0-2); Band 4 % (0-2.0); Eosinophil 3 % (0-3); Lymphocyte 6 % (20-51); Monocyte 7 % (0-9); Neutrophil 74 % (42-75); Platelet Estimate Normal (NORMAL); RBC Morphology Normal (NORMAL)
[2016-12-16] MEDS: PANTOPRAZOLE SODIUM 40 MG TABLET.EC PO SCH (09:15)
[2016-12-16] MEDS: MAGNESIUM OXIDE 400 MG TABLET PO SCH (09:15)
[2016-12-16] MEDS: MULTIVITAMINS 1 CAP CAPSULE PO SCH (09:15)
[2016-12-16] MEDS: SACCHAROMYCES BOULARDII 250 MG CAPSULE PO SCH (09:15)
[2016-12-16] MEDS: DILTIAZEM HCL 240 MG CAP.SR.24H PO SCH (09:16)
[2016-12-16] MEDS: QUEtiapine FUMARATE 100 MG TABLET PO SCH (09:16)
[2016-12-16] MEDS: ROSUVASTATIN CALCIUM 10 MG TABLET PO SCH (09:17)
[2016-12-16] MEDS: VENLAFAXINE HCL 75 MG TABLET PO SCH (09:17)
[2016-12-16] MEDS: SUCRALFATE 1 G TABLET PO SCH ×2 (09:17→13:54)
[2016-12-16] MEDS: POTASSIUM CHLORIDE 20 MEQ TABLET.SA PO SCH (09:17)
[2016-12-16] MEDS: LORATADINE 10 MG TABLET PO SCH (09:17)
[2016-12-16] MEDS: MORPHINE SULFATE 15 MG TABLET.SA PO SCH (09:34)
[2016-12-16 13:07] VITALS: BP 92/46
--- NOTE | 2016-12-16 14:06 | DS ---
(1) Acute and chronic respiratory failure Problem: Acute Qualifiers: Respiratory failure complication: hypoxia Qualified Code(s): J96.21 - Acute and chronic respiratory failure with hypoxia (2) Hospital-acquired pneumonia Problem: Acute (3) Altered mental status Problem: Acute (4) Tremor Problem: Acute (5) Lung cancer Problem: Chronic Qualifiers: Laterality: left (6) Atrial fibrillation with rapid ventricular response Problem: Acute (7) Fecal retention Problem: Acute (8) UTI (urinary tract infection) Problem: Resolved Description of Stay: Abigail is a 66 yo female that was admitted with worsening weakness, hypoxia, altered mental status, and tremors. Chest xray showed new right lung pneumonia. Due to recently being admitted at [facility] as well as getting a week of IV invanz through our [facility] for a UTI she was considered at risk for hospital acquired pneumonia and treated with zosyn and vancomycin. She was placed on 4lpm of oxygen via NC to keep sats >90%. She was treated with nebulizers. Over time she was weaned back to her baseline of 3lpm of oxygen via NC. During hospital course she developed atrial fibrillation with RVR. This resolved back to sinus rhythm with fluids and diltiazem. At one point during hospital course she required IV drip. She was transitioned to oral diltiazem and dosing was adjusted for improved rate control and blood pressure was monitored. During hospital course she had RUQ abdominal pain. This was initially thought to be from stool retention seen on abdominal xrays. She had good bowel movents with lactulose but this did not seem to help her RUQ abdominal pain or her random episodes of confusion that continued to occur. However with lactulose, colace, and miralax she was able to consistently have good bowel movements. Because of the episodes of confusion and tremors a brain MRI was completed. I was concerned for the potential of having brain mets due to her known history of lung cancer, however MRI was clear of any acute abnormalities. I suspect her neurological symptoms to be secondary to narcotics that she takes for chronic pain from cancer. Pain appeared to be fairly well controlled with morphine sulfate ER 15mg BID and 2 percocet every 4-6 hours. She worked with PT throughout hospital course a little but was usually too tired to work with them long. Because of this she was unable to qualify for skilled and at discharge she was able to ambulate in the [place] and qualified for home health with PT. She completed her duration of IV antibiotics of zosyn and vancomycin during hospital course. She will be continued on her bowel regimen. Procedures Performed: none Discharge Disposition: Home self care Disposition: Home self-care Condition: Fair Discharge Activity: Activity as tolerated Discharge Diet: General/regular food Referrals: Oliver Rg, [Primary Care Provider] - (Monday or Monday (afternoon)) Problem Oriented Discharge Instructions to Patient/Family: Constipation, Adult , [id number], Atrial Fibrillation, [id number], Community-Acquired Pneumonia , Adult, [id number] Additional Patient Instructions (free text): Please make TCM appointment at discharge,if applicable. Thank you! Iman @ ext. [phone]. Follow up with Dr. Rg on 12-21-16 @ 2:00pm. [facility] new at discharge. Home health with Nursing, PT, OT, and Nursing Aid. Stop calcium vitamin as this may add to constipation. Start OTC vitamin D only 1000 units daily instead of the calcium/vitamin D. Take Miralax, sennakot S, and lactulose daily. May stop Miralax if having frequent stools. Complete Home Medications List: Complete Home Medication List: Atorvastatin Calcium 20 mg PO HS 05/30/12 Quetiapine Fumarate [Seroquel] 400 mg PO BID 05/30/12 Venlafaxine HCl 100 mg PO BID 05/30/12 Pantoprazole Sodium 40 mg PO DAILY 10/12/14 Mirtazapine [Remeron] 15 mg PO HS 11/20/16 Acetaminophen [Tylenol] 650 mg PO Q4H PRN 12/07/16 Budesonide/Formoterol Fumarate [Symbicort 160-4.5 Mcg Inhaler] 2 puff IH BID Cetirizine HCl [Zyrtec] 10 mg PO DAILY 12/07/16 Furosemide [Lasix] 40 mg PO DAILY 12/07/16 Nitroglycerin [Nitrostat] 0.4 mg SL Q5MIN PRN 12/07/16 Ondansetron HCl [Zofran] 8 mg PO Q8H PRN 12/07/16 Potassium Chloride [K-Dur] 1 tab PO DAILY 12/07/16 Tiotropium [place] [Spiriva Respimat] 2 puff IH DAILY 12/07/16 ALPRAZolam [Xanax] 0.5 mg PO BID PRN 12/20/16 Albuterol Sulfate [Proair Hfa] 2 puff IH Q6H PRN 12/20/16 Calcium Carbonate/Vitamin D3 [Calcium 500-Vit D3 200 Tablet] 1 each PO DAILY 08/29 Diltiazem HCl [Diltiazem 24Hr Cd] 240 mg PO DAILY 12/20/16 HYDROcodone/ACETAMINOPHEN [Hydrocodon-Acetaminoph 7.5-325] 1 each PO Q4H Ipratropium [place] 0.2 mg IH QID 12/20/16 Lactulose [Enulose] 10 gm PO BID 12/20/16 Magnesium Oxide [Magnesium] 400 mg PO DAILY 12/20/16 Multivitamin [Multivitamins] 1 each PO DAILY 12/20/16 Polyethylene Glycol 3350 [Miralax] 17 gm PO DAILY 12/20/16 Prochlorperazine Maleate [Compazine] 10 mg PO QID PRN 12/20/16 Rivaroxaban [Xarelto] 20 mg PO DAILY 12/20/16 Sennosides/Docusate Sodium [Senokot-S] 1 tab PO BID 12/20/16 Sucralfate [Carafate] 1 gm PO QID 12/20/16 guaiFENesin [Mucinex] 600 mg PO BID 12/20/16 Morphine Sulfate [Morphine Sulfate ER] 20 mg PO BID #60 cap.er.pel 12/22/16 oxyCODONE HCL/ACETAMINOPHEN [Percocet 5 MG/325 MG] 1 tab PO Q4H 12/22/16
== END 2016-12-16 15:15 | disposition home health service (06) | DRG 193 ==
LOC: ER 16:14 → MS 19:19 → SCU 12-11 07:24 → MS 12-11 12:30
PROVIDERS: ADMIT Internal Medicine; ATTEND Family Medicine
DX: J18.9 Pneumonia, unspecified organism (principal); J96.21 Acute and chronic respiratory failure with hypoxia; C34.90 Malignant neoplasm of unspecified part of unspecified bronchus or lung; C78.7 Secondary malignant neoplasm of liver and intrahepatic bile duct; C79.51 Secondary malignant neoplasm of bone; N39.0 Urinary tract infection, site not specified; Y95 Nosocomial condition; K59.01 Slow transit constipation; G25.1 Drug-induced tremor; R41.0 Disorientation, unspecified; T40.605A Adverse effect of unspecified narcotics, initial encounter; Y92.239 Unspecified place in hospital as the place of occurrence of the external cause; J44.9 Chronic obstructive pulmonary disease, unspecified; E11.9 Type 2 diabetes mellitus without complications; N18.3 Chronic kidney disease, stage 3 (moderate); E03.9 Hypothyroidism, unspecified; I48.2 Chronic atrial fibrillation; I25.2 Old myocardial infarction; Z87.891 Personal history of nicotine dependence; Z86.711 Personal history of pulmonary embolism; Z79.01 Long term (current) use of anticoagulants; Z95.5 Presence of coronary angioplasty implant and graft; Z99.81 Dependence on supplemental oxygen
CPT/HCPCS: 36415; 70553; 71010; 71020; 74020; 74177; 80048; 80053; 80202; 81001; 82140; 82272; 82728; 83540; 83550; 83605; 83735; 84145; 84484; 85007; 85025; 85610; 87040; 87077; 87081; 87086; 87186; 93005; 96365; 97110; 97116; 97140; 97162; 97166; 99285; J2405

== ENCOUNTER 2016-12-20 12:26 | Observation (INO) | payer MEDICARE, MEDICAID ==
[2016-12-20 13:23] LABS: Hematocrit 25.6 % (37.0-47.0); Hemoglobin 8.3 gm/dL (12.5-16.0); Mean Cell Volume 89.8 fl (78-100); Mean Corpuscular Hemoglobin 29.1 pg (27-31); Mean Corpuscular Hgb Conc 32.4 g/dl (32-36); Mean Platelet Volume 9.8 fl (6.0-9.5); Neutrophil # 13.4 K/mm3 (1.3-6.0); Neutrophil % 75.2 % (42-75.0); Platelet Count 466 K/mm3 (150-450); Red Blood Count 2.85 M/mm3 (4.2-5.4); Red Cell Distribution Width 18.5 % (11.5-14.0); White Blood Count 17.9 K/mm3 (4.0-10.5)
[2016-12-20 13:49] LABS: Anion Gap 12.3 mmol/L (6.8-13.8); Bilirubin, Total 0.3 mg/dL (0.0-1.1); Ca. Corrected For Albumin 9.4 mg/dL (8.4-10.2); Calcium * 8.1 mg/dL (7.9-10.9); Carbon Dioxide 29.4 mmol/L (24-32.6); Potassium 3.7 mmol/L (3.4-4.6); Total Protein 7.6 gm/dL (6.2-8.2)
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
[2016-12-20 14:02] LABS: Urine Bilirubin Negative (NEGATIVE); Urine Blood Negative /ul (NEGATIVE); Urine Ketone Negative (NEGATIVE); Urine Nitrite Negative (NEGATIVE); Urine Protein 15 mg/dL (NEGATIVE); Urine Specific Gravity 1.015 SP.GR. (1.005-1.010); Urine Urobilinogen Normal (NORMAL)
[2016-12-20 14:15] LABS: Urine Appearance Clear; Urine Bacteria 1+; Urine Color Yellow; Urine Hyaline Cast 0-5 /LPF; Urine RBC None Seen /hpf (0-5); Urine WBC 0-5 /hpf (0-5)
[2016-12-20] MEDS ORDERED: CEFEPIME HCL 2 GM in DEXTROSE 5 % IN WATER 100 ML IV ONE ×2 (15:30)
[2016-12-20] MEDS: oxyCODONE HCL/ACETAMINOPHEN 1 TAB TABLET PO PRN (18:45)
[2016-12-20] MEDS ORDERED: ACETAMINOPHEN 325 MG TABLET PO PRN (20:11)
[2016-12-20] MEDS ORDERED: ALPRAZolam 0.5 MG TABLET PO PRN (20:11)
[2016-12-20] MEDS ORDERED: ALBUTEROL SULFATE 2.5 MG/3 ML VIAL.NEB IH PRN (20:11)
[2016-12-20] MEDS ORDERED: ONDANSETRON HCL 4 MG TABLET PO PRN (20:11)
[2016-12-20] MEDS ORDERED: NITROGLYCERIN 0.4 MG/TAB BTL SL PRN (20:11)
[2016-12-20] MEDS ORDERED: PROCHLORPERAZINE MALEATE 10 MG TABLET PO PRN (20:11)
[2016-12-20] MEDS ORDERED: ATORVASTATIN CALCIUM 40 MG TABLET PO SCH (21:00)
[2016-12-20] MEDS: SUCRALFATE 1 G TABLET PO SCH (21:03)
[2016-12-20] MEDS: QUEtiapine FUMARATE 100 MG TABLET PO SCH (21:03)
[2016-12-20] MEDS: SENNOSIDES/DOCUSATE SODIUM 1 TAB TABLET PO SCH (21:03)
[2016-12-20] MEDS: FLUTICASONE/SALMETEROL 14 PUFF DISK.W.DEV IH SCH (21:03)
[2016-12-20] MEDS: LACTULOSE 10 G/15 ML BTL PO SCH (21:03)
[2016-12-20] MEDS: MIRTAZAPINE 15 MG TABLET PO SCH (21:03)
[2016-12-20] MEDS: MORPHINE SULFATE 15 MG TABLET.SA PO SCH (21:03)
[2016-12-20] MEDS: IPRATROPIUM BROMIDE 0.5 MG/2.5 ML VIAL.NEB IH SCH (21:18)
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
[2016-12-21] MEDS: oxyCODONE HCL/ACETAMINOPHEN 1 TAB TABLET PO PRN ×3 (01:17→18:41)
[2016-12-21] MEDS: IPRATROPIUM BROMIDE 0.5 MG/2.5 ML VIAL.NEB IH SCH ×4 (06:08→18:11)
[2016-12-21 06:11] LABS: Hematocrit 28.7 % (37.0-47.0); Hemoglobin 9.2 gm/dL (12.5-16.0); Mean Cell Volume 91.1 fl (78-100); Mean Corpuscular Hemoglobin 29.2 pg (27-31); Mean Corpuscular Hgb Conc 32.1 g/dl (32-36); Mean Platelet Volume 9.6 fl (6.0-9.5); Neutrophil % 68.6 % (42-75.0); Platelet Count 527 K/mm3 (150-450); Red Blood Count 3.15 M/mm3 (4.2-5.4); Red Cell Distribution Width 18.7 % (11.5-14.0); White Blood Count 14.7 K/mm3 (4.0-10.5)
[2016-12-21] MEDS ORDERED: HYDROcodone/ACETAMINOPHEN 1 EACH TABLET PO PRN (06:24)
[2016-12-21] MEDS ORDERED: ONDANSETRON HCL 8 MG TABLET PO PRN (06:46)
[2016-12-21] MEDS ORDERED: HEPARIN SOD.,PORCINE 100 UNITS/ML ONE ×3 (08:07→12:41)
[2016-12-21] MEDS ORDERED: DILTIAZEM HCL 5 MG/ML VIAL IV ONE ×2 (08:43→11:00)
[2016-12-21] MEDS ORDERED: FUROSEMIDE 20 MG TABLET PO SCH (09:00)
[2016-12-21] MEDS: FLUTICASONE/SALMETEROL 14 PUFF DISK.W.DEV IH SCH ×2 (09:32→20:40)
[2016-12-21] MEDS: CALCIUM CARBONATE/VITAMIN D3 1 TAB TABLET PO SCH (09:33)
[2016-12-21] MEDS: SUCRALFATE 1 G TABLET PO SCH ×4 (09:34→20:41)
[2016-12-21] MEDS: VENLAFAXINE HCL 75 MG TABLET PO SCH ×2 (09:36→20:42)
[2016-12-21] MEDS: LACTULOSE 10 G/15 ML BTL PO SCH ×2 (09:36→20:42)
[2016-12-21] MEDS: MULTIVIT-MIN/FA/LYCOPEN/LUTEIN 1 TAB TABLET PO SCH (09:36)
[2016-12-21] MEDS: POTASSIUM CHLORIDE 20 MEQ TABLET.SA PO SCH (09:37)
[2016-12-21] MEDS: MAGNESIUM OXIDE 400 MG TABLET PO SCH (09:38)
[2016-12-21] MEDS: POLYETHYLENE GLYCOL 3350 119 GM BTL PO SCH (09:39)
[2016-12-21] MEDS: PANTOPRAZOLE SODIUM 40 MG TABLET.EC PO SCH (09:39)
[2016-12-21] MEDS: QUEtiapine FUMARATE 100 MG TABLET PO SCH ×2 (09:40→20:44)
[2016-12-21] MEDS: SENNOSIDES/DOCUSATE SODIUM 1 TAB TABLET PO SCH ×2 (09:40→20:43)
[2016-12-21] MEDS: RIVAROXABAN 20 MG TABLET PO SCH (09:41)
[2016-12-21] MEDS: TIOTROPIUM BROMIDE 5 CAP INHALER IH SCH (09:41)
[2016-12-21] MEDS: DILTIAZEM HCL 240 MG CAP.SR.24H PO SCH (09:42)
[2016-12-21] MEDS: FUROSEMIDE 40 MG TABLET PO SCH (09:58)
[2016-12-21] MEDS: MORPHINE SULFATE 15 MG TABLET.SA PO SCH ×2 (10:06→20:43)
[2016-12-21] MEDS ORDERED: NORMAL SALINE 1,000 ML IV PRN (10:48)
[2016-12-21] MEDS ORDERED: POTASSIUM CHLORIDE 100 ML IV SCH (19:30)
[2016-12-21] MEDS: MIRTAZAPINE 15 MG TABLET PO SCH (20:43)
[2016-12-21] MEDS ORDERED: ROSUVASTATIN CALCIUM 10 MG TABLET PO SCH (21:00)
--- NOTE | 2016-12-21 23:39 | PN ---
Subjective - Date and Time Seen Date: 12/21/16 Time: 16:56 Subjective Narrative: Abigail was unable to work with therapy long enough today to qualify for skilled. She declines [facility]. Will have her continue with home health and PT. No fever, chills, nausea, or vomiting. Still not coughing up phlegm. Objective - Vitals Vitals: Last Vital Signs Temp 36.7 C 12/21/16 20:14 Pulse 95 12/21/16 20:14 Resp 18 12/21/16 20:14 BP 112/53 12/21/16 20:14 Pulse Ox 98 12/21/16 20:14 - Abnormal Lab Findings Abnormal Lab Findings: Abnormal Lab Results 12/21/16 Range/Units 06:02 WBC 14.7 H (4.0-10.5) K/mm3 RBC 3.15 L (4.2-5.4) M/mm3 Hgb 9.2 L (12.5-16.0) gm/dL Hct 28.7 L (37.0-47.0) % RDW 18.7 H (11.5-14.0) % Plt Count 527 H (150-450) K/mm3 MPV 9.6 H (6.0-9.5) fl Immature Gran % (Auto) 2.10 H (0.001-0.429) % Immature Gran # (Auto) 0.31 H (0.000-0.0310) K/mm3 Lymphocytes % 13.9 L (20-51) % Monocytes % 9.5 H (0.0-9) % Eosinophils % 4.9 H (0.0-3.0) % Neutrophils # 10.0 H (1.3-6.0) K/mm3 Monocytes # 1.4 H (0.0-1.0) k/mm3 Absolute Basophils 0.2 H (0.0-0.1) k/mm3 - Exam Constitutional: Present: Alert, Oriented x3, Cooperative ENT Exam: Present: hearing grossly normal Respiratory: Present: decreased breath sounds - Left lung Cardiovascular/Chest: Present: no murmur, tachycardia Abdomen: Present: Normal bowel sounds, soft, tender - RUQ Skin Exam: Present: normal color, warm/dry, no cyanosis Neurologic: Present: alert, normal mood/affect, oriented x 3 Appearance: Present: appropriate appearance, appropriate insight Eye contact: Present: cooperative, good eye contact, normal speech Thoughts: Present: normal thought pattern, no apparent hallucination Assessment/Plan - Problems/Diagnosis (1) Mucus plugging of bronchi Problem: Acute Narrative: Suspect mucus plug of bronchi has caused the complete white out of left chest, although with her history of lung cancer a bronchial tumor is possible. Will set her up with pulmonology to consider bronch if needed. (2) Generalized weakness Problem: Chronic Narrative: Will set up home health with PT. She did not qualify for skilled therapy at hospital because she was unable to work with them long enough and she declines [facility] for therapy.
[2016-12-22] MEDS: oxyCODONE HCL/ACETAMINOPHEN 1 TAB TABLET PO PRN ×2 (05:53→12:11)
[2016-12-22] MEDS: IPRATROPIUM BROMIDE 0.5 MG/2.5 ML VIAL.NEB IH SCH ×3 (06:01→16:53)
[2016-12-22 06:05] LABS: Hematocrit 26.9 % (37.0-47.0); Hemoglobin 8.8 gm/dL (12.5-16.0); Mean Cell Volume 89.1 fl (78-100); Mean Corpuscular Hemoglobin 29.1 pg (27-31); Mean Corpuscular Hgb Conc 32.7 g/dl (32-36); Mean Platelet Volume 9.7 fl (6.0-9.5); Platelet Count 494 K/mm3 (150-450); Red Blood Count 3.02 M/mm3 (4.2-5.4); Red Cell Distribution Width 18.5 % (11.5-14.0); White Blood Count 16.5 K/mm3 (4.0-10.5)
[2016-12-22 06:09] LABS: Total Cells Counted 100
[2016-12-22 06:28] LABS: Eosinophil 7 % (0-3); Hypochromia 1+; Lymphocyte 8 % (20-51); Neutrophil 85 % (42-75); Platelet Estimate Increased (NORMAL); Target Cells 2+
--- NOTE | 2016-12-22 07:14 | PN ---
Subjective - Date and Time Seen Date: 12/22/16 Time: 07:05 Subjective Narrative: Patient seen today sitting up in chair and stated her left side hurt which isn' t new. she however has not been using the incentive spirometry and have a non productive cough. Denies fever, chills, chest pain or shortness of breath. pt anticipate working with therapist later today. plan of care discussed she verbalized understanding and agrees. Objective - Review of Systems Generalized/Overall Review: Reports: Weakness EENTM: Reports: Nose Congestion Respiratory: Reports: Cough Cardiac: Reports: No Symptoms Reported Abdominal: Reports: Abdominal Pain Genitourinary Symptoms: Reports: No Symptoms Reported Neurological: Reports: No Symptoms Reported Skin: Reports: No Symptoms Reported Endocrine: Reports: No Symptoms Reported - Vitals Vitals: Last Vital Signs Temp 36.6 C 12/22/16 06:58 Pulse 93 12/22/16 06:58 Resp 22 H 12/22/16 06:58 BP 136/68 12/22/16 06:58 Pulse Ox 98 12/22/16 06:58 - Abnormal Lab Findings Abnormal Lab Findings: Abnormal Lab Results 12/22/16 Range/Units 06:01 WBC 16.5 H (4.0-10.5) K/mm3 RBC 3.02 L (4.2-5.4) M/mm3 Hgb 8.8 L (12.5-16.0) gm/dL Hct 26.9 L (37.0-47.0) % RDW 18.5 H (11.5-14.0) % Plt Count 494 H (150-450) K/mm3 MPV 9.7 H (6.0-9.5) fl Neutrophils % (Manual) 85 H (42-75) % Lymphocytes % (Manual) 8 L (20-51) % Eosinophils % (Manual) 7 H (0-3) % Neutrophils # (Manual) 14.0 H (1.3-6.0) K/mm3 Lymphocytes # (Manual) 1.3 L (1.5-3.5) k/mm3 Eosinophils # (Manual) 1.2 H (0.0-0.7) k/mm3 Nucleated RBCs 2.0 H (0-1) % Platelet Estimate Increased H (NORMAL) - Exam Constitutional: Present: Alert, Oriented x3, Cooperative ENT Exam: Present: hearing grossly normal Neck: Present: full range of motion Breasts: Present: Exam deferred Respiratory: Present: chest non-tender, no respiratory distress, decreased breath sounds Cardiovascular/Chest: Present: normal peripheral pulses, no chest tenderness, no edema, no gallop, irregularly irregular Abdomen: Present: Normal bowel sounds, soft, nontender, nondistended /Rectal: Present: Exam deferred Extremity: Present: normal range of motion, non-tender, normal inspection, no pedal edema Skin Exam: Present: warm/dry Neurologic: Present: oriented x 3 Appearance: Present: appropriate appearance Eye contact: Present: cooperative Thoughts: Present: normal thought pattern Assessment/Plan - Problems/Diagnosis (1) Generalized weakness Problem: Chronic (2) Atrial fibrillation Problem: Chronic (3) Constipation Problem: Chronic Qualifiers: Constipation type: slow transit constipation Qualified Code(s): K59.01 - Slow transit constipation (4) Pneumonia Problem: Suspected
[2016-12-22] MEDS: FLUTICASONE/SALMETEROL 14 PUFF DISK.W.DEV IH SCH (08:54)
[2016-12-22] MEDS: CALCIUM CARBONATE/VITAMIN D3 1 TAB TABLET PO SCH (08:56)
[2016-12-22] MEDS: SUCRALFATE 1 G TABLET PO SCH ×2 (08:57→12:11)
[2016-12-22] MEDS: DILTIAZEM HCL 240 MG CAP.SR.24H PO SCH (08:58)
[2016-12-22] MEDS: MULTIVIT-MIN/FA/LYCOPEN/LUTEIN 1 TAB TABLET PO SCH (08:59)
[2016-12-22] MEDS: VENLAFAXINE HCL 75 MG TABLET PO SCH (09:00)
[2016-12-22] MEDS: LACTULOSE 10 G/15 ML BTL PO SCH (09:01)
[2016-12-22] MEDS: POTASSIUM CHLORIDE 20 MEQ TABLET.SA PO SCH (09:02)
[2016-12-22] MEDS: FUROSEMIDE 40 MG TABLET PO SCH (09:03)
[2016-12-22] MEDS: POLYETHYLENE GLYCOL 3350 119 GM BTL PO SCH (09:04)
[2016-12-22] MEDS: TIOTROPIUM BROMIDE 5 CAP INHALER IH SCH (09:06)
[2016-12-22] MEDS: MORPHINE SULFATE 15 MG TABLET.SA PO SCH (09:18)
[2016-12-22] MEDS: MAGNESIUM OXIDE 400 MG TABLET PO SCH (09:18)
[2016-12-22] MEDS: PANTOPRAZOLE SODIUM 40 MG TABLET.EC PO SCH (09:19)
[2016-12-22] MEDS: SENNOSIDES/DOCUSATE SODIUM 1 TAB TABLET PO SCH (09:20)
[2016-12-22] MEDS: QUEtiapine FUMARATE 100 MG TABLET PO SCH (09:22)
[2016-12-22] MEDS: RIVAROXABAN 20 MG TABLET PO SCH (09:23)
[2016-12-22 10:38] VITALS: BP 138/62
--- NOTE | 2016-12-22 14:47 | DS ---
(1) Mucus plugging of bronchi Diagnosis(s): Jessi is a 66 yo female admitted with weakness, low blood pressure, and hypoxemia at home. From the time she arrived in the ER and through hospital course her oxygen and blood pressure were stable without concerns. Chest xray in the ER showed complete white out of her left lung which is not a whole lot different from her baseline due to her lung cancer history. However it was worse than prior. I suspected this was from atelectasis and not new left sided pneumonia. She had no fevers. White count was elevated but relatively stable from prior. A chest CT was done to further evaluate and showed a left bronchial mass. I suspect that this is a mucus plug due to the acute change, but a tumor may also be possible. Will refer to pulmonology to consider bronchoscopy. She was generally weak but otherwise doing well. She will need to work on strengthing as her primary goal. Agreed to work with home PT. Follow up with me in one week and follow up with pulmonology at the next available appointment. Problem: Acute (2) Weakness Problem: Acute Procedures Performed: none Discharge Disposition: Home self care Disposition: [facility] Home Health Condition: Fair Discharge Activity: Activity as tolerated Discharge Diet: General/regular food Referrals: Oliver Rg DO [Staff Physician] - Bharathi Bingham MD [Non Staff Physicians] - (Next available to establish, lung cancer. Follow up bronchial mucus plug vs tumor. [facility] Pulm clinic, every other Monday) Problem Oriented Discharge Instructions to Patient/Family: Weakness, Easy-to- Read Additional Patient Instructions (free text): Resume [facility] HH at discharge. Please call report and fax orders upon discharge. Follow up with Dr. Rg 12-28-16 @ 2:00pm. Prescriptions (Any new or edited meds): Morphine Sulfate [Morphine Sulfate ER] 20 mg PO BID #60 cap.er.pel Complete Home Medications List: Complete Home Medication List: Atorvastatin Calcium 20 mg PO HS 05/30/12 Quetiapine Fumarate [Seroquel] 400 mg PO BID 05/30/12 Venlafaxine HCl 100 mg PO BID 05/30/12 Pantoprazole Sodium 40 mg PO DAILY 10/12/14 Mirtazapine [Remeron] 15 mg PO HS 11/20/16 Acetaminophen [Tylenol] 650 mg PO Q4H PRN 12/07/16 Budesonide/Formoterol Fumarate [Symbicort 160-4.5 Mcg Inhaler] 2 puff IH BID Cetirizine HCl [Zyrtec] 10 mg PO DAILY 12/07/16 Furosemide [Lasix] 40 mg PO DAILY 12/07/16 Nitroglycerin [Nitrostat] 0.4 mg SL Q5MIN PRN 12/07/16 Ondansetron HCl [Zofran] 8 mg PO Q8H PRN 12/07/16 Potassium Chloride [K-Dur] 1 tab PO DAILY 12/07/16 Tiotropium [place] [Spiriva Respimat] 2 puff IH DAILY 12/07/16 ALPRAZolam [Xanax] 0.5 mg PO BID PRN 12/20/16 Albuterol Sulfate [Proair Hfa] 2 puff IH Q6H PRN 12/20/16 Calcium Carbonate/Vitamin D3 [Calcium 500-Vit D3 200 Tablet] 1 each PO DAILY 08/29 Diltiazem HCl [Diltiazem 24Hr Cd] 240 mg PO DAILY 12/20/16 HYDROcodone/ACETAMINOPHEN [Hydrocodon-Acetaminoph 7.5-325] 1 each PO Q4H Ipratropium [place] 0.2 mg IH QID 12/20/16 Lactulose [Enulose] 10 gm PO BID 12/20/16 Magnesium Oxide [Magnesium] 400 mg PO DAILY 12/20/16 Multivitamin [Multivitamins] 1 each PO DAILY 12/20/16 Polyethylene Glycol 3350 [Miralax] 17 gm PO DAILY 12/20/16 Prochlorperazine Maleate [Compazine] 10 mg PO QID PRN 12/20/16 Rivaroxaban [Xarelto] 20 mg PO DAILY 12/20/16 Sennosides/Docusate Sodium [Senokot-S] 1 tab PO BID 12/20/16 Sucralfate [Carafate] 1 gm PO QID 12/20/16 guaiFENesin [Mucinex] 600 mg PO BID 12/20/16 Morphine Sulfate [Morphine Sulfate ER] 20 mg PO BID #60 cap.er.pel 12/22/16 oxyCODONE HCL/ACETAMINOPHEN [Percocet 5 MG/325 MG] 1 tab PO Q4H 12/22/16
[2016-12-22] MEDS ORDERED: HEPARIN SOD.,PORCINE 100 UNITS/ML ONE (15:34)
[2016-12-23] MEDS ORDERED: PANTOPRAZOLE SODIUM 40 MG TABLET.EC PO SCH (07:00)
== END 2016-12-22 16:00 | disposition home health service (06) ==
LOC: ER 12:26 → MS 15:19
PROVIDERS: ADMIT Family Medicine; ATTEND Family Medicine
DX: T17.590A Other foreign object in bronchus causing asphyxiation, initial encounter (principal); J18.9 Pneumonia, unspecified organism; C34.90 Malignant neoplasm of unspecified part of unspecified bronchus or lung; C78.7 Secondary malignant neoplasm of liver and intrahepatic bile duct; I48.2 Chronic atrial fibrillation; K59.00 Constipation, unspecified; E03.9 Hypothyroidism, unspecified; K21.9 Gastro-esophageal reflux disease without esophagitis
CPT/HCPCS: 36415; 71020; 71260; 80053; 81001; 83605; 83880; 84145; 84484; 85007; 85025; 87040; 93005; 94640; 96365; 96375; 97110; 97116; 97161; 97530; 99285; G0378